=== PATIENT | female | born 1935 | race Caucasian/White ===

== ENCOUNTER → 2016-04-17 | Outpatient (CLI) | payer OTHER ==
[~2016-04-17] MED LIST: IOPAMIDOL (ISOVUE 370) 100 ML BTL IV ONE
--- NOTE | 2016-04-17 16:41 | DX ---
Fluoroscopy provided for port check 1331 hours Indication: Blood cannot be aspirated from port. Fluoroscopy time: 1.1 minute. Dose: 36.4 mGy Technique: Several still images and real time fluoroscopy. 10 mL of sterile Isovue-370 was hand injec attila via the port. The port catheter was accessed by the radiology nurse. Findings: The left anterior chest wall port is well seated. No fracture or discontinuity of the port catheter. No extravasation from the port or catheter tubing at any point throughout the exam. A sheat h at the tip of the port catheter is evidenced by refluxing of contrast posteriorly along the side fl rickey of the tip and then disbursing off the side of the catheter. Tiny amount of contrast intermitten tly flows freely from the tip of the catheter. Impression: 1. Fibrin sheath at tip of port catheter. 2. Intact port. No discontinuity of port or leak. Comment: The results were called to Zoë at [facility]. She plans to convey the results to Dr. Adrienne lezama.
== END ==
LOC: FIMAGING 12:47
PROVIDERS: ATTEND Internal Medicine Hematology & Oncology
DX: Z45.2 Encounter for adjustment and management of vascular access device (principal)
CPT/HCPCS: 76000; Q9967

== ENCOUNTER → 2016-07-18 | Outpatient (CLI) | payer OTHER | LOC: GIMAGING 10:10 | PROVIDERS: ATTEND Family Medicine | DX: M25.512 Pain in left shoulder (principal) | CPT/HCPCS: 73030-PO ==

== ENCOUNTER 2016-11-07 13:03 | Outpatient (CLI) | payer OTHER ==
[2016-11-07] MEDS ORDERED: ACETAMINOPHEN 325 MG TAB PO ONE (14:00)
[2016-11-07 19:01] VITALS: PULSE 72; RESP 20; TEMP 99; O2SAT 96
== END 2016-11-07 18:00 | disposition home or self-care (01) ==
LOC: FOBOP 13:03
PROVIDERS: ATTEND Internal Medicine Hematology & Oncology
PROC: 30233N1 Transfusion of Nonautologous Red Blood Cells into Peripheral Vein, Percutaneous Approach (ICD-10-PCS; principal; 2016-11-07)
DX: C90.00 Multiple myeloma not having achieved remission (principal); D63.1 Anemia in chronic kidney disease; D64.81 Anemia due to antineoplastic chemotherapy
CPT/HCPCS: 36430; 81403; J1642; P9016; 86850-90; 86870-90; 86905-90; 86922-90; 99001-90

== ENCOUNTER → 2016-12-19 | Outpatient (CLI) | payer OTHER | LOC: FOBOP 11:46 | PROVIDERS: ATTEND Internal Medicine Hematology & Oncology | PROC: 30233N1 Transfusion of Nonautologous Red Blood Cells into Peripheral Vein, Percutaneous Approach (ICD-10-PCS; principal; 2016-12-19) | DX: C90.00 Multiple myeloma not having achieved remission (principal); N18.9 Chronic kidney disease, unspecified; D63.1 Anemia in chronic kidney disease; D63.0 Anemia in neoplastic disease | CPT/HCPCS: 36430; J1642; P9016; 86870-90; 86905-90; 86922-90 ==

== ENCOUNTER 2017-01-02 10:24 | Outpatient (CLI) | payer OTHER | END 2017-01-02 14:45 | disposition home or self-care (01) | LOC: FOBOP 10:24 | PROVIDERS: ATTEND Internal Medicine Hematology & Oncology | PROC: 30233N1 Transfusion of Nonautologous Red Blood Cells into Peripheral Vein, Percutaneous Approach (ICD-10-PCS; principal; 2017-01-02) | DX: C90.00 Multiple myeloma not having achieved remission (principal); D63.0 Anemia in neoplastic disease; N18.9 Chronic kidney disease, unspecified | CPT/HCPCS: 36430; J1642; P9016; 86870-90; 86905-90; 86922-90; 99001-90 ==

== ENCOUNTER 2017-01-24 09:53 | Outpatient (CLI) | payer OTHER ==
[2017-01-24 10:21] VITALS: BP 95/55; PULSE 82; RESP 16; TEMP 99.2; O2SAT 97
[2017-01-24] MEDS ORDERED: LIDOCAINE/PRILOCAINE 1 EACH CRTUBE TP ONE (11:15)
== END 2017-01-24 16:30 | disposition home or self-care (01) ==
LOC: FOBOP 09:53
PROVIDERS: ATTEND Internal Medicine Hematology & Oncology
PROC: 30233N1 Transfusion of Nonautologous Red Blood Cells into Peripheral Vein, Percutaneous Approach (ICD-10-PCS; principal; 2017-01-24)
DX: C90.00 Multiple myeloma not having achieved remission (principal); D63.0 Anemia in neoplastic disease; N18.9 Chronic kidney disease, unspecified; E83.111 Hemochromatosis due to repeated red blood cell transfusions; D63.1 Anemia in chronic kidney disease; K58.9 Irritable bowel syndrome, unspecified; E03.9 Hypothyroidism, unspecified; M87.88 Other osteonecrosis, other site; D69.6 Thrombocytopenia, unspecified; R53.83 Other fatigue
CPT/HCPCS: 36430; J1642; P9016; 86870-90; 86905-90; 86922-90

== ENCOUNTER 2017-02-13 11:59 | Outpatient (CLI) | payer OTHER ==
[2017-02-13] MEDS ORDERED: ACETAMINOPHEN 325 MG TAB PO ONE (12:30)
[2017-02-13] MEDS ORDERED: diphenhydrAMINE 25 MG CAP PO ONE (12:30)
[2017-02-13 12:47] VITALS: RESP 16; O2SAT 92
[2017-02-13 13:42] VITALS: BP 116/59; PULSE 76; TEMP 98.2
== END 2017-02-13 16:30 | disposition home or self-care (01) ==
LOC: FOBOP 11:59
PROVIDERS: ATTEND Internal Medicine Hematology & Oncology
PROC: 30233N1 Transfusion of Nonautologous Red Blood Cells into Peripheral Vein, Percutaneous Approach (ICD-10-PCS; principal; 2017-02-13)
DX: C90.00 Multiple myeloma not having achieved remission (principal)
CPT/HCPCS: 36430; J1642; P9016; 86850-90; 86870-90; 86905-90; 86922-90; 99001-90

== ENCOUNTER → 2017-03-13 | Outpatient (CLI) | payer OTHER ==
[~2017-03-13] MED LIST changes: +ACETAMINOPHEN 325 MG TAB PO ONE; -IOPAMIDOL (ISOVUE 370) 100 ML BTL IV ONE; +diphenhydrAMINE 25 MG CAP PO ONE
== END ==
LOC: FOBOP 13:19
PROVIDERS: ATTEND Internal Medicine Hematology & Oncology
PROC: 30233N1 Transfusion of Nonautologous Red Blood Cells into Peripheral Vein, Percutaneous Approach (ICD-10-PCS; principal; 2017-03-13)
DX: C90.00 Multiple myeloma not having achieved remission (principal)
CPT/HCPCS: 36430; J1642; P9016; 86850-90; 86870-90; 86905-90; 86922-90

== ENCOUNTER 2017-04-10 11:16 | Outpatient (CLI) | payer OTHER | END 2017-04-10 15:15 | disposition home or self-care (01) | LOC: FOBOP 11:16 | PROVIDERS: ATTEND Internal Medicine Hematology & Oncology | PROC: 30233N1 Transfusion of Nonautologous Red Blood Cells into Peripheral Vein, Percutaneous Approach (ICD-10-PCS; principal; 2017-04-10) | DX: C90.00 Multiple myeloma not having achieved remission (principal); D63.0 Anemia in neoplastic disease; D70.9 Neutropenia, unspecified; E83.119 Hemochromatosis, unspecified; E03.9 Hypothyroidism, unspecified; N18.9 Chronic kidney disease, unspecified; M87.88 Other osteonecrosis, other site; D69.6 Thrombocytopenia, unspecified | CPT/HCPCS: 36430; J1642; P9016; P9040; 86850-90; 86870-90; 86905-90; 86922-90 ==

== ENCOUNTER → 2017-04-23 | Outpatient (CLI) | payer OTHER | LOC: FIMAGING 16:20 | PROVIDERS: ATTEND Internal Medicine Hematology & Oncology | DX: M19.012 Primary osteoarthritis, left shoulder (principal); D69.6 Thrombocytopenia, unspecified | CPT/HCPCS: 82607-90; 82784-90; 86334-90 ==

== ENCOUNTER 2017-04-24 10:43 | Outpatient (CLI) | payer OTHER ==
[2017-04-24] MEDS ORDERED: ACETAMINOPHEN 325 MG TAB PO ONE (11:15)
== END 2017-04-24 20:09 | disposition home or self-care (01) ==
LOC: FOBOP 10:43
PROVIDERS: ATTEND Internal Medicine Hematology & Oncology
PROC: 30233N1 Transfusion of Nonautologous Red Blood Cells into Peripheral Vein, Percutaneous Approach (ICD-10-PCS; principal; 2017-04-24)
DX: D46.9 Myelodysplastic syndrome, unspecified (principal); J18.1 Lobar pneumonia, unspecified organism; C90.00 Multiple myeloma not having achieved remission; D63.0 Anemia in neoplastic disease; D63.1 Anemia in chronic kidney disease; E83.119 Hemochromatosis, unspecified; N18.9 Chronic kidney disease, unspecified; D70.9 Neutropenia, unspecified; K58.9 Irritable bowel syndrome, unspecified; E03.9 Hypothyroidism, unspecified; M87.88 Other osteonecrosis, other site; D69.6 Thrombocytopenia, unspecified; R41.3 Other amnesia
CPT/HCPCS: 36430; J1642; P9016; 86850-90; 86870-90; 86905-90; 86922-90; 99001-90

== ENCOUNTER → 2017-05-13 | Outpatient (CLI) | payer OTHER | LOC: FIMAGING 15:02 | PROVIDERS: ATTEND Internal Medicine Hematology & Oncology | DX: Z13.820 Encounter for screening for osteoporosis (principal); M81.0 Age-related osteoporosis without current pathological fracture ==

== ENCOUNTER 2017-05-30 19:48 | Inpatient (IN) | payer OTHER ==
[2017-05-30] MEDS ORDERED: NS 1,000 ML IV ONE ×2 (19:54→21:54)
--- NOTE | 2017-05-30 19:57 | EDPHY ---
H & P Time Seen by Provider: 05/30/17 19:55 HPI/ROS: HPI CHIEF COMPLAINT: Nausea/vomiting HISTORY OF PRESENT ILLNESS: Patient very pleasant 81-year-old female, she presents emergency room with nausea vomiting. Patient states that she did this evening and shortly after eating dinner she had nausea with vomiting. She vomited multiple times. She felt weak after vomiting. She had no significant pain. Specifically denies chest pain or shortness of breath. 911 was called from her private residence where she resides alone. But she has home health care. She had trouble walking due to feeling weak. EMS arrived to evaluate her and brought her to the emergency room. She did receive IV Zofran around this feeling much better. She denies any chest pain or shortness of breath. Denies abdominal pain. States her nausea is since resolved. Past Medical History: Hypertension, dementia, anxiety, thrombocytopenia, anemia , failure to thrive, multiple myeloma Past Surgical History: No recent surgery Social History: Denies drugs alcohol tobacco. Resides in independent private residence. Family History: Noncontributory ROS REVIEW OF SYSTEMS: A comprehensive 10 point review of systems is otherwise negative aside from elements mentioned in the history of present illness. Exam Constitutional elderly, otherwise nontoxic, triage nursing summary reviewed, vital signs reviewed, awake/alert. Eyes normal conjunctivae and sclera, EOMI, PERRLA. HENT normal inspection, atraumatic, moist mucus membranes, no epistaxis, neck supple/ no meningismus, no raccoon eyes. Respiratory clear to auscultation bilaterally, normal breath sounds, no respiratory distress, no wheezing. Cardiovascular rate normal, regular rhythm, no murmur, no edema, distal pulses normal. Gastrointestinal soft, non-tender, no rebound, no guarding, normal bowel sounds, no distension, no pulsatile mass. Genitourinary no CVA tenderness. Musculoskeletal no midline vertebral tenderness, full range of motion, no calf swelling, no tenderness of extremities, no meningismus, good pulses, neurovascularly intact. Skin pink, warm, & dry, no rash, skin atraumatic. Neurologic awake, alert and oriented x 3, AAOx3, moves all 4 extremities equally, motor intact, sensory intact, CN II-XII intact, normal cerebellar, normal vision, normal speech. Psychiatric normal mood/affect. Heme/Lymph/Immune no lymphadenopathy. Differential Diagnosis: Includes but is not limited to in a particular order acute nausea vomiting, dehydration, electrolyte disturbance, infection, gastritis, bowel obstruction Medical Decision Making: Plan for this patient IV establishment IV fluid bolus , she is feeling better after IV Zofran given by EMS, EKG, troponin, basic blood work electrolytes, urinalysis re-evaluate. Re-evaluation: EKG interpretation by me on record in [employer] system. Impression time of EKG 1999: Sinus rhythm rate of [address] ST depression no significant T-wave abnormalities. 2151: Patient re-evaluated this time she is resting comfortably. She is not actively vomiting. Vital signs are stable. Her abdomen remained soft. After further discussion with her and her daughter in-law bedside they would like to be admitted for generalized weakness, and nausea vomiting and dehydration. I think this is appropriate given her age and labs. 2155: Spoke with Dr. Gutiérrez who agrees to admit. CT scan abdomen pelvis without IV contrast shows no evidence of bowel obstruction. Please see full dictation details for report of CT scan findings. Source: Patient, EMS Exam Limitations: Clinical condition - Personal History Tetanus Vaccine Date: less than 10 years - Medical/Surgical History Hx Asthma: No Hx Chronic Respiratory Disease: No Hx Diabetes: No Hx Cardiac Disease: No Hx Renal Disease: Yes Hx Cirrhosis: No Hx Alcoholism: No Hx HIV/AIDS: No Hx Splenectomy or Spleen Trauma: No Other PMH: mulitple myeloma, low platelets, vertigo, osteoporosis, hypothyroid, chronic kidney disease. ortho (L4-L5 fusion), fall, L pelvic fx 01/29 , concussion 01/29, cataracts, neoplastic anemia - Social History Smoking Status: Former smoker Constitutional: Initial Vital Signs Temperature (C) 36.6 C 05/30/17 19:45 Heart Rate 88 05/30/17 19:45 Respiratory Rate 16 05/30/17 19:45 Blood Pressure 114/60 05/30/17 19:45 O2 Sat (%) 97 05/30/17 19:45 O2 Delivery Mode Room Air Allergies/Adverse Reactions: Cephalosporins Allergy (Unknown, Verified 01/15/16 10:56) Unknown Penicillins Allergy (Unknown, Verified 01/15/16 10:56) Rash Sulfa (Sulfonamide Antibiotics) Allergy (Unknown, Verified 01/15/16 10:56) throat swelling fenofibrate nanocrystallized [From Tricor] Allergy (Verified 01/15/16 10:56) Unknown fenofibrate,micronized [From Tricor] Allergy (Verified 01/15/16 10:56) Unknown lovastatin [From Mevacor] Allergy (Verified 01/15/16 10:56) Unknown Home Medications: Medication Instructions Recorded Acetaminophen [Tylenol 325mg (*)] 325 mg PO Q6 PRN 05/31/17 Ascorbic Acid [Vitamin C 500 mg 500 mg PO DAILY 05/31/17 (*)] Aspirin EC [Aspirin EC 81 mg (*)] 81 mg PO DAILY 05/31/17 C/E/Zn/Cu/OM3/DHA/EPA/LUT/ZEAX 2 each PO DAILY 05/31/17 [Preservision Areds 2 Softgel] Deferasirox [Jadenu] 180 mg PO BID 05/31/17 Dexamethasone [DEXAMETHASONE] 1 mg PO DAILY 05/31/17 Herbals/Supplements -Info Only 1 ea PO DAILY 05/31/17 Levothyroxine [Synthroid 137 mcg 137 mcg PO DAILY06 05/31/17 (*)] Loratadine [Claritin 10 mg] 10 mg PO DAILY PRN 05/31/17 Pomalidomide [Pomalyst] 1 mg PO DAILY 05/31/17 traMADol [Ultram 50 mg (*)] 50 mg PO DAILY PRN 05/31/17 valACYclovir [Valtrex (*)] 500 mg PO DAILY 05/31/17 Medical Decision Making - Data Points Laboratory Results: Laboratory Results 05/31/17 13:43 05/31/17 06:35 05/31/17 05/31/17 05/31/17 13:43 08:02 05:55 WBC 1.76 10^3/uL L 10^3/uL (3.80-9.50) RBC 1.97 10^6/uL L 10^6/uL (4.18-5.33) Hgb 6.6 g/dL L g/dL (12.6-16.3) Hct 20.8 % L % (38.0-47.0) MCV 105.6 fL H fL (81.5-99.8) MCH 33.5 pg pg (27.9-34.1) MCHC 31.7 g/dL L g/dL (32.4-36.7) RDW 28.4 % H % (11.5-15.2) Plt Count 40 10^3/uL L 10^3/uL (150-400) Platelet Estimate DECREASED L (ADEQ) Smear Review By Jina GIRON MD Patient ABO/Rh A POSITIVE Rh Phenotype Pending Antibody Screen TNP Antibody Screen Refer POSITIVE Antibody ID Referred Pending Red Cell Ag Pheno DNA Pending AMY, IgG Interpret Pending AMY, Poly Interpret Pending AMY, Complement Interp Pending Crossmatch See Detail Crossmatch IS Only See Detail 05/30/17 20:00 WBC RBC Hgb Hct MCV MCH MCHC RDW Plt Count Platelet Estimate Smear Review By Jina GIRON MD Patient ABO/Rh Rh Phenotype Antibody Screen Antibody Screen Refer Antibody ID Referred Red Cell Ag Pheno DNA AMY, IgG Interpret AMY, Poly Interpret AMY, Complement Interp Crossmatch Crossmatch IS Only Microbiology Results: MICROBIOLOGY 05/31/17 10:04 Nasal, Sinus - Swab Respiratory Panel (PCR) - Final No Organism Detected Medications Given: Ascorbic Acid (Vitamin C) 500 mg PO DAILY NELSON Stop: 11/27/17 14:44 Last Admin: 05/31/17 15:29 Dose: 500 mg Aspirin Buffered (Aspirin Ec) 81 mg PO DAILY NELSON Stop: 11/27/17 14:44 Last Admin: 05/31/17 15:29 Dose: 81 mg Cetirizine HCl (Zyrtec) 10 mg PO DAILY PRN PRN Reason: ALLERGIES Stop: 11/27/17 14:47 Last Admin: 05/31/17 15:29 Dose: 10 mg Dexamethasone (Dexamethasone) 1 mg PO DAILY NELSON Stop: 11/27/17 14:59 Last Admin: 05/31/17 15:30 Dose: 1 mg Dextrose/Sodium Chloride (D5w 1/2 Ns) 1,000 mls @ 100 mls/hr IV CONT NELSON Stop: 11/26/17 22:44 Last Admin: 05/31/17 01:09 Dose: 1,000 mls Levothyroxine Sodium (Synthroid) 137 mcg PO DAILY06 NELSON Stop: 11/27/17 14:44 Last Admin: 05/31/17 15:28 Dose: 137 mcg Miscellaneous Medication (Deferasirox [Jadenu]) 180 mg PO BID NELSON Stop: 11/27/17 14:44 Last Admin: 05/31/17 21:33 Dose: Not Given Miscellaneous Medication (Pomalidomide [Pomalyst]) 1 mg PO DAILY NELSON Stop: 11/27/17 14:44 Last Admin: 05/31/17 15:31 Dose: Not Given Multivitamins/Minerals (Preservision Areds2 Formula) 2 each PO DAILY NELSON Stop: 11/27/17 14:44 Last Admin: 05/31/17 15:28 Dose: 2 each Valacyclovir HCl (Valtrex) 500 mg PO DAILY NELSON Stop: 06/30/17 14:44 Last Admin: 05/31/17 15:32 Dose: Not Given Discontinued Medications Dexamethasone (Decadron) 1 mg PO DAILY NELSON Stop: 11/27/17 14:44 Last Admin: 05/31/17 15:32 Dose: Not Given Sodium Chloride (Ns) 1,000 mls @ 0 mls/hr IV EDNOW ONE; Wide Open PRN Reason: Protocol Stop: 05/30/17 19:55 Last Admin: 05/30/17 20:00 Dose: 1,000 mls Sodium Chloride (Ns) 1,000 mls @ 0 mls/hr IV ONCE ONE PRN Reason: Wide Open Stop: 05/30/17 21:55 Last Admin: 05/30/17 22:52 Dose: 1,000 mls Departure - Departure Disposition: [facility] Inpatient Acute Clinical Impression: Dehydration, Generalized weakness, Thrombocytopenia Nausea and vomiting Qualifiers: Vomiting type: unspecified Vomiting Intractability: intractable Qualified Code( s): R11.2 - Nausea with vomiting, unspecified Anemia Qualifiers: Anemia type: unspecified type Qualified Code(s): D64.9 - Anemia, unspecified Condition: Fair
--- NOTE | 2017-05-30 20:02 | CPEKG ---
Heart Rate: 87 RR Interval: 690 QRSD Interval: 80 QT Interval: 360 QTC Interval: 433 QRS [place]: 51 T Wave [place]: 51 EKG Severity - ABNORMAL ECG - EKG Impression: ATRIAL FIBRILLATION Electronically Signed By: Albert Rodríguez 30-May-2017 23:13:41
[2017-05-30 20:16] LABS: PLATELET COUNT 62 10^3/uL (150-400)
[2017-05-30 20:20] LABS: INR 0.98 (0.83-1.16); PROTIME(PATIENT) 13.2 SEC (12.0-15.0)
[2017-05-30] MEDS ORDERED: ACETAMINOPHEN 325 MG TAB PO PRN (22:32)
[2017-05-30] MEDS ORDERED: ONDANSETRON DISINTEGRATING 4 MG TAB PO PRN (22:32)
[2017-05-30] MEDS ORDERED: PROMETHAZINE HCL 25 MG/ML INJ IVP PRN (22:32)
[2017-05-30] MEDS ORDERED: ONDANSETRON 4 MG/2 ML VIAL IVP PRN (22:32)
[2017-05-31] MEDS: D5W 1/2 NS 1,000 ML IV SCH (01:09)
--- NOTE | 2017-05-31 01:37 | PDGENHP ---
History and Physical - Chief Complaint Fatigue - History of Present Illness 81 yo F w/ MM and related pancytopenia presents with fatigue. Patient lives alone. Today she displayed fatigue, nausea, and vomiting so patient's daughter in law insisted she come to the ED for evaluation. Patient's family did not feel comfortable with patient returning home by herself so the decision was made to admit the patient for observation. Patient herself is frustrated with this decision and would prefer to be home but no longer has a ride. She describes a few days of congestion and mild, generalized fatigues but denies other symptoms to me at this time. Work-up in the ED relatively unremarkable revealing know pancytopenia and no acute findings on CT A/P. History Information - Allergies/Home Medication List Allergies/Adverse Reactions: Cephalosporins Allergy (Unknown, Verified 01/15/16 10:56) Unknown Penicillins Allergy (Unknown, Verified 01/15/16 10:56) Rash Sulfa (Sulfonamide Antibiotics) Allergy (Unknown, Verified 01/15/16 10:56) throat swelling fenofibrate nanocrystallized [From Tricor] Allergy (Verified 01/15/16 10:56) Unknown fenofibrate,micronized [From Tricor] Allergy (Verified 01/15/16 10:56) Unknown lovastatin [From Mevacor] Allergy (Verified 01/15/16 10:56) Unknown Home Medications: Unobtainable 05/30/17 [Last Taken Unknown] I have personally reviewed and updated: family history, medical history - Past Medical History Additional medical history: Multiple Myeloma. Pancytopenia - Surgical History Additional surgical history: Kyphoplasties - Family History Additional family history: Asked, denies - Social History Smoking Status: Former smoker Review of Systems Review of Systems: ROS: 10pt was reviewed & negative except for what was stated in HPI & below Physical Exam Physical Exam: Temp Pulse Resp BP Pulse Ox 36.6 C 90 20 96/53 L 95 05/30/17 19:45 05/31/17 01:05 05/31/17 01:05 05/31/17 01:05 05/31/17 01:05 Constitutional: no apparent distress, not in pain Eyes: PERRL, EOMI Ears, Nose, Mouth, Throat: moist mucous membranes, no oral mucosal ulcers Cardiovascular: regular rate and rhythym, systolic murmur Respiratory: no respiratory distress, clear to auscultation Gastrointestinal: normoactive bowel sounds, soft, non-tender abdomen Skin: warm, normal color Musculoskeletal: full muscle strength, no muscle tenderness Neurologic: CN II-XII Intact, other (A&Ox2) Psychiatric: interacting appropriately, not anxious Lab Data & Imaging Review 05/30/17 20:00 05/30/17 20:00 WBC 2.41 10^3/uL (3.80-9.50) L 05/30/17 20:00 RBC 2.61 10^6/uL (4.18-5.33) L 05/30/17 20:00 Hgb 8.6 g/dL (12.6-16.3) L 05/30/17 20:00 Hct 26.7 % (38.0-47.0) L 05/30/17 20:00 MCV 102.3 fL (81.5-99.8) H 05/30/17 20:00 MCH 33.0 pg (27.9-34.1) 05/30/17 20:00 MCHC 32.2 g/dL (32.4-36.7) L 05/30/17 20:00 RDW 28.3 % (11.5-15.2) H 05/30/17 20:00 Plt Count 62 10^3/uL (150-400) L 05/30/17 20:00 MPV 9.6 fL (8.7-11.7) 05/30/17 20:00 Neut % (Auto) Not Reported 05/30/17 20:00 Lymph % (Auto) Not Reported 05/30/17 20:00 [place] % (Auto) Not Reported 05/30/17 20:00 Eos % (Auto) Not Reported 05/30/17 20:00 Baso % (Auto) Not Reported 05/30/17 20:00 Nucleat RBC Rel Count 5.4 % (0.0-0.2) H 05/30/17 20:00 Absolute Neuts (auto) Not Reported 05/30/17 20:00 Absolute Lymphs (auto) Not Reported 05/30/17 20:00 Absolute Monos (auto) Not Reported 05/30/17 20:00 Absolute Eos (auto) Not Reported 05/30/17 20:00 Absolute Basos (auto) Not Reported 05/30/17 20:00 Absolute Nucleated RBC 0.13 10^3/uL (0-0.01) H 05/30/17 20:00 Immature Gran % Not Reported 05/30/17 20:00 Seg Neutrophils % 19 % 05/30/17 20:00 Band Neutrophils % 29 % 05/30/17 20:00 Lymphocytes % 35 % 05/30/17 20:00 Monocytes % 6 % 05/30/17 20:00 Eosinophils % 9 % 05/30/17 20:00 Basophils % 1 % 05/30/17 20:00 Metamyelocytes % 1 % 05/30/17 20:00 Immature Gran # Not Reported 05/30/17 20:00 Absolute Seg Neuts 0.46 10^/uL (1.70-6.50) L 05/30/17 20:00 Absolute Band Neuts 0.70 10^3/uL (0.00-0.70) 05/30/17 20:00 Absolute Lymphocytes 0.84 10^3/uL (1.00-3.00) L 05/30/17 20:00 Absolute Monocytes 0.14 10^3/uL (0.30-0.80) L 05/30/17 20:00 Absolute Eosinophils 0.22 10^3/uL (0.03-0.40) 05/30/17 20:00 Absolute Basophils 0.02 10^3/uL (0.02-0.10) 05/30/17 20:00 Absolute Metamyelocyte 0.02 10^3/mL (0.00-0.00) H 05/30/17 20:00 Nucleated RBCs 2 /100 WBC (0-0) H 05/30/17 20:00 Platelet Estimate DECREASED (ADEQ) L 05/30/17 20:00 Polychromasia 1+ H 05/30/17 20:00 Hypochromasia 1+ H 05/30/17 20:00 Oval Macrocytes 1+ H 05/30/17 20:00 PT 13.2 SEC (12.0-15.0) 05/30/17 20:00 INR 0.98 (0.83-1.16) 05/30/17 20:00 APTT 23.9 SEC (23.0-38.0) 05/30/17 20:00 VBG Lactic Acid 1.6 mmol/L (0.7-2.1) 05/30/17 20:15 Sodium 143 mEq/L (135-145) 05/30/17 20:00 Potassium 5.3 mEq/L (3.5-5.2) H 05/30/17 20:00 Chloride 105 mEq/L (97-110) 05/30/17 20:00 Carbon Dioxide 19 mEq/l (22-31) L 05/30/17 20:00 Anion Gap 19 mEq/L (8-16) H 05/30/17 20:00 BUN 33 mg/dL (7-23) H 05/30/17 20:00 Creatinine 1.3 mg/dL (0.6-1.0) H 05/30/17 20:00 Estimated GFR 39 05/30/17 20:00 Glucose 175 mg/dL (70-100) H 05/30/17 20:00 Calcium 9.4 mg/dL (8.5-10.4) 05/30/17 20:00 Total Bilirubin 0.4 mg/dL (0.1-1.4) 05/30/17 20:00 Conjugated Bilirubin 0.4 mg/dL (0.0-0.5) 05/30/17 20:00 Unconjugated Bilirubin 0.0 mg/dL (0.0-1.1) 05/30/17 20:00 AST 53 IU/L (14-46) H 05/30/17 20:00 ALT 88 IU/L (9-52) H 05/30/17 20:00 Alkaline Phosphatase 105 IU/L (38-126) 05/30/17 20:00 Troponin I < 0.012 ng/mL (0.000-0.034) 05/30/17 20:00 Total Protein 7.7 g/dL (6.3-8.2) 05/30/17 20:00 Albumin 4.1 g/dL (3.5-5.0) 05/30/17 20:00 Lipase 229 IU/L (23-300) 05/30/17 20:00 Imaging Review: Imaging Impressions Abdomen X-Ray 05/30/17 19:55 Impression: 1. Nonspecific bowel gas pattern with minimal air-fluid levels right lower quadrant. Abdomen/Pelvis CT 05/30/17 21:58 Impression: 1. No evidence of significant small bowel distention. 2. Small infrarenal abdominal aortic aneurysm with extensive vascular calcification. 3. Left sacral insufficiency fracture. Prior kyphoplasty at multiple levels at the thoracolumbar junction. Assessment & Plan Assessment: 81 yo F w/ MM and related pancytopenia presents with likely viral illness. Plan: 1. Fatigue- Suspected viral illness on the basis of 2 day history of congestion and generalized fatigue. Vital signs stable and laboratory work-up generally at baseline. Patient lives alone and unsafe to return home at this time. - Admit for observation - Respiratory PCR - PT/OT evaluations 2. Multiple myeloma - With known pancytopenia and CKD. Laboratory values generally at baseline. 3. Pancytopenia - Chronic problem, likely related to MM. - Will check ferritin and B12 noting deficiency in both in the past Diet - Regular Code - Full Ppx - SCDs noting thrombocytopenia Dispo - Admit under observation status
[2017-05-31 06:26] LABS: PLATELET COUNT 38 10^3/uL (150-400)
[2017-05-31] MEDS ORDERED: ENOXAPARIN 40 MG/0.4 ML SYR SC SCH (09:00)
[2017-05-31 14:02] LABS: PLATELET COUNT 40 10^3/uL (150-400)
[2017-05-31] MEDS ORDERED: traMADol 50 MG TAB PO PRN (14:36)
[2017-05-31] MEDS ORDERED: NON-FORMULARY NEW DRUG (Loratadine [Claritin 10 Mg] 10 MG) PO PRN (14:36)
[2017-05-31] MEDS ORDERED: DEXAMETHASONE 0.5 MG TAB PO SCH (14:45)
--- NOTE | 2017-05-31 14:45 | ASMTCMCOM ---
CM Note CM Note Notes: Pt has been admitted with n/v. She has a hx of multiple myeloma, FTT, anemia, HTN, anxiety. She lives alone with caregivers from [facility] who are there M-F 4 hours in the mornnig and afternoon and less on weekends. Spoke with her daughter in law Rosalba [phone] (pt's son is Ronald) who stated pt has significant memory issues but has not been formerly diagnosed with dementia. They will increase her private duty care when pt discharges home - not sure if this will be a permanent change but more will be determined during pt's stay here. Staff is concerned regarding pt's ability to be alone at home. Pt has had transfusion today 2/2 low hemoglobin. CM will follow for any d/c needs. Date Signed: 05/31/2017 02:45 PM Electronically Signed By:GWYN Albert
[2017-05-31] MEDS ORDERED: CETIRIZINE 10 MG TAB PO PRN (14:48)
[2017-05-31] MEDS: LEVOTHYROXINE 137 MCG TAB PO SCH (15:28)
[2017-05-31] MEDS: PRESERVISION AREDS2 FORMULA EYE VIT 1 EACH PO SCH (15:28)
[2017-05-31] MEDS: ASPIRIN EC 81 MG TAB PO SCH (15:29)
[2017-05-31] MEDS: ASCORBIC ACID 500 MG TAB PO SCH (15:29)
[2017-05-31] MEDS: DEXAMETHASONE 2 MG TAB PO SCH (15:30)
[2017-05-31] MEDS: DEFERASIROX 180 MG PO SCH ×2 (15:30→21:33)
[2017-05-31] MEDS: POMALIDOMIDE 1 MG PO SCH (15:31)
[2017-05-31] MEDS: valACYclovir 500 MG TAB PO SCH (15:32)
--- NOTE | 2017-05-31 15:49 | HOSPPROG ---
Hospitalist Progress Note Assessment/Plan: 81 yo F admitted w weakness, nausea nd vomiting and anemia. anemia: 2/2 longstanding MM no signs active bleeding TRANSFUSE 2 UNITS vomiting: appears to have resolved hungry weakness: suspect driven by very low hct transfuse PT and OT evals MM: continue meds proph: scd's dispo: change to inpt was delay in getting blood given complexity of crossmatch Subjective: hungry. no melena. case d/w dr echevarria Objective: Vital Signs Temp Pulse Resp BP Pulse Ox 36.9 C 78 16 108/57 L 96 05/31/17 15:05 05/31/17 15:05 05/31/17 15:05 05/31/17 15:05 05/31/17 15:05 Microbiology 05/31/17 10:04 Respiratory Panel (PCR) - Final Nasal, Sinus - Swab No Organism Detected Laboratory Results 05/31/17 13:43 05/31/17 06:35 05/30/17 05/31/17 06/01/17 05:59 05:59 05:59 Intake Total 720 Output Total 550 Balance 170 PT 13.2 SEC (12.0-15.0) 05/30/17 20:00 INR 0.98 (0.83-1.16) 05/30/17 20:00 - Physical Exam Constitutional: no apparent distress, appears nourished Eyes: PERRL, anicteric sclera Ears, Nose, Mouth, Throat: moist mucous membranes, hearing normal Cardiovascular: regular rate and rhythym, no murmur, rub, or gallop Respiratory: no respiratory distress, no rales or rhonchi Gastrointestinal: normoactive bowel sounds, soft, non-tender abdomen Genitourinary: no bladder fullness, No waters in urethra Skin: warm, normal color Musculoskeletal: full muscle strength Neurologic: AAOx3, sensation intact bilaterally Psychiatric: interacting appropriately Lymph, Heme, Immunologic: no cervical LAD ICD10 Worksheet Patient Problems: Problems Problem Status Onset Anemia Acute Dehydration Acute Nausea and vomiting Acute Thrombocytopenia Acute Weakness Acute Acute exacerbation of chronic bronchitis Acute Anemia in neoplastic disease Acute Chemotherapy induced thrombocytopenia Acute Closed stable fracture of multiple pubic rami Acute Failure to thrive in adult Acute Fall at home Acute Fracture of left superior pubic ramus Acute Hand pain Acute Gait instability Chronic Multiple myeloma Chronic
--- NOTE | 2017-05-31 16:09 | PDMN ---
Medical Necessity Medical necessity: C/M review: est. > 2 MN LOS for eval and TX of acute and persistent anemia, vomiting- appears to have resolved, weakness - suspect driven by very low Hct requiring 2 units PRBCs (delay in getting blood given complexity of crossmatch), ongoing IV fluids, comorbid longstanding multiple myeloma per 05/31/2017 Hospitalist progress note.
[2017-06-01 03:14] VITALS: RESP 16
[2017-06-01] MEDS: D5W 1/2 NS 1,000 ML IV SCH (03:51)
[2017-06-01] MEDS: LEVOTHYROXINE 137 MCG TAB PO SCH (06:14)
[2017-06-01 07:34] VITALS: BP 102/72; PULSE 70; TEMP 97.5; O2SAT 96
[2017-06-01] MEDS: POMALIDOMIDE 1 MG PO SCH (08:02)
[2017-06-01] MEDS: DEFERASIROX 180 MG PO SCH (08:02)
[2017-06-01] MEDS: valACYclovir 500 MG TAB PO SCH (08:03)
--- NOTE | 2017-06-01 08:35 | HOSPPROG ---
Hospitalist Progress Note Assessment/Plan: 81 yo F admitted w weakness, nausea nd vomiting and anemia. anemia: 2/2 longstanding MM no signs active bleeding TRANSFUSE 2 UNITS vomiting: appears to have resolved hungry weakness: suspect driven by very low hct transfuse PT and OT evals MM: continue meds proph: scd's dispo: home today provided adequate hct bump > 30 minutes Subjective: transfused 2 units. feels well. anxious for dc Objective: Vital Signs Temp Pulse Resp BP Pulse Ox 36.4 C 70 16 102/72 96 06/01/17 07:33 06/01/17 07:33 06/01/17 07:33 06/01/17 07:33 06/01/17 07:33 05/31/17 06/01/17 06/02/17 05:59 05:59 05:59 Intake Total 2345 Balance 2345 PT 13.2 SEC (12.0-15.0) 05/30/17 20:00 INR 0.98 (0.83-1.16) 05/30/17 20:00 - Physical Exam Constitutional: no apparent distress, appears nourished Eyes: PERRL, anicteric sclera Ears, Nose, Mouth, Throat: moist mucous membranes, hearing normal Cardiovascular: regular rate and rhythym, no murmur, rub, or gallop Respiratory: no respiratory distress, no rales or rhonchi Gastrointestinal: normoactive bowel sounds, soft, non-tender abdomen Genitourinary: no bladder fullness, No waters in urethra Skin: warm, normal color Musculoskeletal: full muscle strength Neurologic: AAOx3 ICD10 Worksheet Patient Problems: Problems Problem Status Onset Anemia Acute Dehydration Acute Nausea and vomiting Acute Thrombocytopenia Acute Weakness Acute Acute exacerbation of chronic bronchitis Acute Anemia in neoplastic disease Acute Chemotherapy induced thrombocytopenia Acute Closed stable fracture of multiple pubic rami Acute Failure to thrive in adult Acute Fall at home Acute Fracture of left superior pubic ramus Acute Hand pain Acute Gait instability Chronic Multiple myeloma Chronic
--- NOTE | 2017-06-01 08:52 | GDS ---
[f rep st] DISCHARGE SUMMARY DISCHARGE DIAGNOSES: 1. Nausea, vomiting, now resolved. 2. Multiple myeloma. 3. Pancytopenia, status post 2 units of packed red cells. HOSPITAL COURSE: Please see admission history and physical by Demetrius Beck MD. The patient presented with nausea and vomiting on the evening of the . She was noted to have a hemoglobin t hat fell to 5.7 with IV fluids. She was ordered 2 units of blood, which took a bit of time given the complexity of crossmatch. The patient had no evidence of GI bleeding. She felt well, was anxious f or discharge. She had no further vomiting, was tolerating a regular diet. DISCHARGE MEDICATIONS: Unchanged. /[id number]/MODL
--- NOTE | 2017-06-01 08:54 | ASMTLACE ---
LACE Acuity / Level of Answers: Yes Care: Did the patient have an inpatient admission? Comorbidities - select Answers: Any tumor (including all that apply lymphoma or leukemia) Mild liver or renal disease Other Notes: hx multiple myeloma, HTN, anxiety, ane jeremiah, memory loss # of Emergency department Answers: 1-2 visits in the last 6 months Score: 9 Date Signed: 06/01/2017 08:54 AM Electronically Signed By:Isabel Handley RN
[2017-06-01] MEDS ORDERED: Herbals/Supplements -Info Only PO SCH (09:00)
[2017-06-01] MEDS: ASCORBIC ACID 500 MG TAB PO SCH (09:08)
[2017-06-01] MEDS: ASPIRIN EC 81 MG TAB PO SCH (09:08)
[2017-06-01] MEDS: DEXAMETHASONE 2 MG TAB PO SCH (09:08)
[2017-06-01] MEDS: PRESERVISION AREDS2 FORMULA EYE VIT 1 EACH PO SCH (09:08)
--- NOTE | 2017-06-01 11:47 | ASMTCMCOM ---
CM Note CM Note Notes: Patient medically cleared for discharge. Met with her [id number] who is taking her home. She reports they have increased the hours of care at home so the patient will not be alone. No therapies ordered. Home with caregivers. CM availble should other needs arise. Date Signed: 06/01/2017 11:47 AM Electronically Signed By:Isabel Handley RN
== END 2017-06-01 11:48 | disposition home or self-care (01) | DRG 841 ==
LOC: EDUNIT# → F1N 05-31 10:13 → OBSVTOIN 05-31 15:50 → F1N 05-31 19:28
PROVIDERS: ADMIT Student in an Organized Health Care Education/Training Program; ATTEND Internal Medicine
PROC: 30233N1 Transfusion of Nonautologous Red Blood Cells into Peripheral Vein, Percutaneous Approach (ICD-10-PCS; principal; 2017-05-31)
DX: C90.00 Multiple myeloma not having achieved remission (principal); D61.818 Other pancytopenia; I10 Essential (primary) hypertension; F03.90 Unspecified dementia, unspecified severity, without behavioral disturbance, psychotic disturbance, mood disturbance, and anxiety; F41.9 Anxiety disorder, unspecified; E03.9 Hypothyroidism, unspecified; N18.9 Chronic kidney disease, unspecified
CPT/HCPCS: 82607-90; 86850-90; 86870-90; 86905-90; 86922-90; G0378; P9016

== ENCOUNTER → 2017-07-10 | Outpatient (CLI) | payer OTHER | LOC: FOBOP 13:05 | PROVIDERS: ATTEND Internal Medicine Hematology & Oncology | PROC: 30233N1 Transfusion of Nonautologous Red Blood Cells into Peripheral Vein, Percutaneous Approach (ICD-10-PCS; principal; 2017-07-10) | DX: C90.00 Multiple myeloma not having achieved remission (principal) | CPT/HCPCS: 36430; J1642; P9016; 86850-90; 86870-90; 86905-90; 86922-90; 99001-90 ==

== ENCOUNTER → 2017-07-16 | Outpatient (CLI) | payer OTHER ==
[~2017-07-16] MED LIST changes: -ACETAMINOPHEN 325 MG TAB PO ONE; +IOPAMIDOL (ISOVUE 370) 100 ML BTL IV ONE; -diphenhydrAMINE 25 MG CAP PO ONE
== END ==
LOC: FIMAGING 12:05
PROVIDERS: ATTEND Internal Medicine Hematology & Oncology
DX: R09.02 Hypoxemia (principal); R53.83 Other fatigue; I70.0 Atherosclerosis of aorta; I25.10 Atherosclerotic heart disease of native coronary artery without angina pectoris
CPT/HCPCS: 71275; J1642; Q9967; 82784-90; 86334-90

== ENCOUNTER 2017-07-24 12:04 | Outpatient (CLI) | payer OTHER ==
[2017-07-24] MEDS ORDERED: ACETAMINOPHEN 325 MG TAB PO ONE (12:45)
[2017-07-24] MEDS ORDERED: diphenhydrAMINE 25 MG CAP PO ONE (12:45)
== END 2017-07-24 16:00 | disposition home or self-care (01) ==
LOC: FOBOP 12:04
PROVIDERS: ATTEND Internal Medicine Hematology & Oncology
PROC: 30233N1 Transfusion of Nonautologous Red Blood Cells into Peripheral Vein, Percutaneous Approach (ICD-10-PCS; principal; 2017-07-24)
DX: C90.00 Multiple myeloma not having achieved remission (principal)
CPT/HCPCS: 36430; J1642; P9016; 86850-90; 86870-90; 86905-90; 86922-90

== ENCOUNTER → 2017-07-28 | Outpatient (CLI) | payer OTHER | LOC: BMCIMAGING 18:20 | PROVIDERS: ATTEND Family Medicine | DX: M19.011 Primary osteoarthritis, right shoulder (principal); S92.355A Nondisplaced fracture of fifth metatarsal bone, left foot, initial encounter for closed fracture; M77.32 Calcaneal spur, left foot ==

== ENCOUNTER 2017-08-21 10:14 | Outpatient (CLI) | payer OTHER ==
[2017-08-21] MEDS ORDERED: diphenhydrAMINE 25 MG CAP PO ONE (10:30)
[2017-08-21] MEDS ORDERED: ACETAMINOPHEN 325 MG TAB PO ONE (10:30)
== END 2017-08-21 14:25 | disposition home or self-care (01) ==
LOC: FOBOP 10:14
PROVIDERS: ATTEND Internal Medicine Hematology & Oncology
PROC: 30233N1 Transfusion of Nonautologous Red Blood Cells into Peripheral Vein, Percutaneous Approach (ICD-10-PCS; principal; 2017-08-21)
DX: C90.00 Multiple myeloma not having achieved remission (principal)
CPT/HCPCS: 36430; P9016; 86850-90; 86870-90; 86905-90; 86922-90

== ENCOUNTER → 2017-08-25 | Outpatient (CLI) | payer OTHER | LOC: BMCIMAGING 13:54 | PROVIDERS: ATTEND Podiatrist Foot & Ankle Surgery | DX: S92.355D Nondisplaced fracture of fifth metatarsal bone, left foot, subsequent encounter for fracture with routine healing (principal) ==

== ENCOUNTER → 2017-09-19 | Outpatient (CLI) | payer OTHER ==
[~2017-09-19] MED LIST changes: +ACETAMINOPHEN 325 MG TAB ONE; +ACETAMINOPHEN 325 MG TAB PO ONE; -IOPAMIDOL (ISOVUE 370) 100 ML BTL IV ONE; +diphenhydrAMINE 25 MG CAP PO ONE
== END ==
LOC: FOBOP 12:34
PROVIDERS: ATTEND Internal Medicine Hematology & Oncology
PROC: 30233N1 Transfusion of Nonautologous Red Blood Cells into Peripheral Vein, Percutaneous Approach (ICD-10-PCS; principal; 2017-09-19)
DX: C90.00 Multiple myeloma not having achieved remission (principal); D64.81 Anemia due to antineoplastic chemotherapy; E83.111 Hemochromatosis due to repeated red blood cell transfusions; D70.9 Neutropenia, unspecified; D69.6 Thrombocytopenia, unspecified; D63.1 Anemia in chronic kidney disease; N18.9 Chronic kidney disease, unspecified; K58.9 Irritable bowel syndrome, unspecified; E03.9 Hypothyroidism, unspecified; R41.3 Other amnesia; R53.82 Chronic fatigue, unspecified
CPT/HCPCS: 36430; J1642; P9016; 86850-90; 86870-90; 86905-90; 86922-90

== ENCOUNTER → 2017-09-22 | Outpatient (CLI) | payer OTHER | LOC: BMCIMAGING 13:23 | PROVIDERS: ATTEND Podiatrist Foot & Ankle Surgery | DX: S92.355A Nondisplaced fracture of fifth metatarsal bone, left foot, initial encounter for closed fracture (principal); X58.XXXA Exposure to other specified factors, initial encounter ==

== ENCOUNTER 2017-10-16 11:20 | Outpatient (CLI) | payer OTHER ==
[2017-10-16] MEDS ORDERED: diphenhydrAMINE 25 MG CAP PO ONE ×2 (11:36→11:45)
[2017-10-16] MEDS ORDERED: ACETAMINOPHEN 325 MG TAB ONE (11:37)
[2017-10-16] MEDS ORDERED: ACETAMINOPHEN 325 MG TAB PO ONE (11:45)
== END 2017-10-16 15:00 | disposition home or self-care (01) ==
LOC: FOBOP 11:20
PROVIDERS: ATTEND Internal Medicine Hematology & Oncology
PROC: 30233N1 Transfusion of Nonautologous Red Blood Cells into Peripheral Vein, Percutaneous Approach (ICD-10-PCS; principal; 2017-10-16)
DX: C90.00 Multiple myeloma not having achieved remission (principal)
CPT/HCPCS: 36430; J1642; P9016; 86850-90; 86870-90; 86905-90; 86922-90; 99001-90

== ENCOUNTER 2017-11-01 11:14 | Outpatient (CLI) | payer OTHER ==
[2017-11-01] MEDS: ACETAMINOPHEN 325 MG TAB PO ONE (11:40)
== END 2017-11-01 18:49 | disposition home or self-care (01) ==
LOC: FOBOP 11:14
PROVIDERS: ATTEND Internal Medicine Hematology & Oncology
PROC: 30233R1 Transfusion of Nonautologous Platelets into Peripheral Vein, Percutaneous Approach (ICD-10-PCS; principal; 2017-11-01)
PROC: 30233N1 Transfusion of Nonautologous Red Blood Cells into Peripheral Vein, Percutaneous Approach (ICD-10-PCS; principal; 2017-11-01)
DX: C90.00 Multiple myeloma not having achieved remission (principal)
CPT/HCPCS: 36430; J1642; P9016; P9037; P9040; 86870-90; 86905-90; 86922-90

== ENCOUNTER 2017-11-10 19:46 | Inpatient (IN) | payer OTHER ==
[2017-11-10 21:04] LABS: PLATELET COUNT 15 10^3/uL (150-400)
[2017-11-10] MEDS ORDERED: NS 1,700 ML IV ONE (21:08)
--- NOTE | 2017-11-10 21:38 | EDPHY ---
H & P Stated Complaint: weak, increase confusion, fever, and RLQ abd pain. concern for UTI Time Seen by Provider: 11/10/17 21:03 HPI/ROS: CHIEF COMPLAINT: Increased confusion, intermittent fevers HISTORY OF PRESENT ILLNESS: The patient is an 82-year-old female with history of multiple myeloma. She received transfusion about 10 days ago. About 3 days later son noticed increased confusion. She has also had intermittent fevers up to 100 degrees. She also complained of some mild suprapubic pain. Son was worried about urinary tract infections because she has had some in the past with similar symptoms. He also states that he found her on the ground a few nights ago but was not sure if she fell. She denies headache. She denies neck pain. No vomiting or diarrhea. No chest pain or shortness of breath. No new rashes or wounds. He brought her here to make sure she did not have urine infection. He does state that she has not been drinking much water. Severity: Mild Modifying factors: None REVIEW OF SYSTEMS: Constitutional: See HPI EENTM: denies: blurred vision, double vision, nose congestion Respiratory: denies: cough, shortness of breath Cardiac: denies: chest pain, irregular heart rate, lightheadedness, palpitations Gastrointestinal/Abdominal: See HPI denies: diarrhea, nausea, vomiting, blood streaked stools Genitourinary: denies: dysuria, frequency, hematuria, pain Musculoskeletal: denies: joint pain, muscle pain Skin: denies: lesions, rash, jaundice, bruising Neurological: denies: headache, numbness, paresthesia, tingling, dizziness, weakness Hematologic/Lymphatic: denies: blood clots, easy bleeding, easy bruising Immunologic/allergic: denies: HIV/AIDS, transplant EXAM: GENERAL: Pleasant, Well-appearing, well-nourished and in no acute distress. HEAD: Atraumatic, normocephalic. EYES: Pupils equal round and reactive to light, extraocular movements intact, sclera anicteric, conjunctiva are normal. ENT: TMs normal, nares patent, oropharynx clear without exudates. Moist mucous membranes. NECK: Normal range of motion, supple without lymphadenopathy or JVD. LUNGS: Breath sounds clear to auscultation bilaterally and equal. No wheezes rales or rhonchi. HEART: Regular rate and rhythm without murmurs, rubs or gallops. ABDOMEN: Mild suprapubic pain, Soft, nontender, normoactive bowel sounds. No guarding, no rebound. No masses appreciated. BACK: No CVA tenderness, no spinal tenderness, step-offs or deformities EXTREMITIES: Normal range of motion, no pitting or edema. No clubbing or cyanosis. NEUROLOGICAL: Cranial nerves II through XII grossly intact. Normal speech, normal gait. 5/5 strength, normal movement in all extremities, normal sensation , normal reflexes PSYCH: Normal mood, normal affect. SKIN: Warm, dry, normal turgor, no visible rashes or lesions. Some small bruises to left upper lip and right side of nose. Source: Patient Exam Limitations: No limitations - Personal History Current Tetanus/Diphtheria Vaccine: Yes Current Tetanus Diphtheria and Acellular Pertussis (TDAP): Yes Tetanus Vaccine Date: less than 10 years - Medical/Surgical History Hx Asthma: No Hx Chronic Respiratory Disease: No Hx Diabetes: No Hx Cardiac Disease: No Hx Renal Disease: Yes Hx Cirrhosis: No Hx Alcoholism: No Hx HIV/AIDS: No Hx Splenectomy or Spleen Trauma: No Other PMH: mulitple myeloma, low platelets, vertigo, osteoporosis, hypothyroid, chronic renal insufficiency, anemia,. ortho (L4-L5 fusion), fall, L pelvic fx 01/29 ,concussion 01/29, cataracts, neoplastic anemia; broken left foot, chemotherapy induced neutropenia,drug induced thrompbocytopenia; transfusion related hemochromatosis, nose bleed/bleeding gums 10/2017 - Family History Significant Family History: No pertinent family hx - Social History Smoking Status: Former smoker Alcohol Use: Sober Drug Use: None Constitutional: Initial Vital Signs Temperature (C) 36.5 C 11/10/17 19:54 Heart Rate 90 11/10/17 19:54 Respiratory Rate 16 11/10/17 19:54 Blood Pressure 102/74 11/10/17 19:54 O2 Sat (%) 94 11/10/17 19:54 O2 Delivery Mode Room Air Allergies/Adverse Reactions: Cephalosporins Allergy (Unknown, Verified 11/10/17 19:57) Unknown Penicillins Allergy (Unknown, Verified 11/10/17 19:57) Rash Sulfa (Sulfonamide Antibiotics) Allergy (Unknown, Verified 11/10/17 19:57) throat swelling fenofibrate nanocrystallized [From Tricor] Allergy (Verified 11/10/17 19:57) Unknown fenofibrate,micronized [From Tricor] Allergy (Verified 11/10/17 19:57) Unknown lovastatin [From Mevacor] Allergy (Verified 11/10/17 19:57) Unknown Home Medications: Medication Instructions Recorded Acetaminophen [Tylenol 325mg (*)] 325 mg PO Q6 PRN 05/31/17 Ascorbic Acid [Vitamin C 500 mg 500 mg PO DAILY 05/31/17 (*)] Deferasirox [Jadenu] 180 mg PO BID 05/31/17 Dexamethasone [DEXAMETHASONE] 1 mg PO DAILY 05/31/17 Herbals/Supplements -Info Only 1 ea PO DAILY 05/31/17 Levothyroxine [Synthroid 137 mcg 137 mcg PO DAILY06 05/31/17 (*)] Loratadine [Claritin 10 mg] 10 mg PO DAILY PRN 05/31/17 valACYclovir [Valtrex (*)] 500 mg PO DAILY 05/31/17 Pomalidomide [Pomalyst] 1 mg PO DAILY 11/11/17 Medical Decision Making - Diagnostics Imaging: Discussed imaging studies w/ bunk house worker Radiologist ED Course/Re-evaluation: We discussed the lab and imaging results. I recommended admission for dehydration. Patient was somewhat reluctant but agreed with the encouragement of her son. This will allow us to ensure she is improving and recheck her kidney function. I have paged hospital service. Head CT ordered in this adult patient for trauma for the following indication: Confusion and thrombocytopenia 11:00 p.m. I discussed the case with Dr. Beck who will admit to medical service. Differential Diagnosis: Partial list of the Differential diagnosis considered include but were not limited to; dehydration, urinary tract infection, sepsis and although unlikely based on the history and physical exam, I also considered intracranial injury, intra-abdominal bleeding, obstruction, ischemia, hemorrhage. - Data Points Laboratory Results: Laboratory Results 11/11/17 04:58 11/11/17 04:58 Microbiology Results: MICROBIOLOGY 11/10/17 22:20 Blood Blood Culture - Preliminary Gram Positive Cocci Clusters 11/10/17 22:20 Blood Blood Panel (PCR) - Final Staph Coagulase Negative 11/10/17 21:55 Blood Blood Culture - Preliminary Medications Given: Discontinued Medications Dexamethasone (Decadron) 1 mg PO DAILY NELSON Stop: 02/24/19 15:44 Last Admin: 11/12/17 10:06 Dose: 1 mg Sodium Chloride (Ns) 1,700 mls @ 3,400 mls/hr 30 ml/kg infuse over 30 min ( 1700 ml) IV EDNOW ONE PRN Reason: Protocol Stop: 11/10/17 21:37 Last Admin: 11/10/17 22:16 Dose: 1,700 mls Sodium Chloride (Ns) 1,000 mls @ 100 mls/hr IV CONT NELSON Stop: 05/09/18 22:59 Last Admin: 11/11/17 21:13 Dose: 1,000 mls Vancomycin HCl 750 mg/ (Dextrose) 165 mls @ 165 mls/hr IV ONCE ONE PRN Reason: Protocol Stop: 11/11/17 21:42 Last Admin: 11/11/17 21:40 Dose: 165 mls Levothyroxine Sodium (Synthroid) 137 mcg PO DAILY06 NELSON Stop: 05/11/18 05:59 Last Admin: 11/12/17 06:08 Dose: 137 mcg Valacyclovir HCl (Valtrex) 500 mg PO DAILY NELSON Stop: 12/11/17 15:44 Last Admin: 11/12/17 10:06 Dose: 500 mg Departure - Departure Disposition: [facility] Acute Clinical Impression: Thrombocytopenia, Failure to thrive in adult, Dehydration Condition: Fair
[2017-11-10 21:58] LABS: INR 1.14 (0.83-1.16); PROTIME(PATIENT) 14.8 SEC (12.0-15.0)
[2017-11-10] MEDS ORDERED: ACETAMINOPHEN 325 MG TAB PO PRN (22:59)
[2017-11-10] MEDS ORDERED: ONDANSETRON 4 MG/2 ML VIAL IVP PRN (22:59)
[2017-11-10] MEDS ORDERED: ONDANSETRON DISINTEGRATING 4 MG TAB PO PRN (22:59)
--- NOTE | 2017-11-10 23:35 | PDGENHP ---
History and Physical - Chief Complaint Fatigue - History of Present Illness 82 yo F w/ hx of melanoma and related pancytopenia presents with fatigue and mild confusion. History mostly obtained from patient's son. He tells me she got a transfusion last Friday. She had a few good days but then became fatigued and somewhat confused. He thought she might have a UTI as she had displayed similar symptoms before in that setting. At the time of my evaluation the patient is A&Ox2 but alert and conversing appropriately. Evaluation in the ED is remarkable only for signs of dehydration (hemoconcentration, WILNER). Infectious work-up is negative. Patient is being admitted for observation of kidney function. Case discussed with ED physician Dr. Wheeler, previous records reviewed in EMR. History Information - Allergies/Home Medication List Allergies/Adverse Reactions: Cephalosporins Allergy (Unknown, Verified 11/10/17 19:57) Unknown Penicillins Allergy (Unknown, Verified 11/10/17 19:57) Rash Sulfa (Sulfonamide Antibiotics) Allergy (Unknown, Verified 11/10/17 19:57) throat swelling fenofibrate nanocrystallized [From Tricor] Allergy (Verified 11/10/17 19:57) Unknown fenofibrate,micronized [From Tricor] Allergy (Verified 11/10/17 19:57) Unknown lovastatin [From Mevacor] Allergy (Verified 11/10/17 19:57) Unknown Home Medications: Acetaminophen [Tylenol 325mg (*)] 325 mg PO Q6 PRN 05/31/17 [Last Taken 11:30] Ascorbic Acid [Vitamin C 500 mg (*)] 500 mg PO DAILY 05/31/17 [Last Taken 12:00] Aspirin EC [Aspirin EC 81 mg (*)] 81 mg PO DAILY 05/31/17 [Last Taken 10/15/17 12:00] Deferasirox [Jadenu] 180 mg PO BID 05/31/17 [Last Taken 10/16/17 08:00] Dexamethasone [DEXAMETHASONE] 1 mg PO DAILY 05/31/17 [Last Taken 10/16/17 08:00] Herbals/Supplements -Info Only 1 ea PO DAILY 05/31/17 [Last Taken 10/16/17 08:00 ] Levothyroxine [Synthroid 137 mcg (*)] 137 mcg PO DAILY06 05/31/17 [Last Taken 08:00] Loratadine [Claritin 10 mg] 10 mg PO DAILY PRN 05/31/17 [Last Taken 10/15/17 12: 00] traMADol [Ultram 50 mg (*)] 50 mg PO DAILY PRN 05/31/17 [Last Taken 10/02/17] valACYclovir [Valtrex (*)] 500 mg PO DAILY 05/31/17 [Last Taken 10/16/17 08:00] I have personally reviewed and updated: family history, medical history - Past Medical History Additional medical history: Multiple Myeloma. Pancytopenia - Surgical History Reports: no pertinent surgical hx Additional surgical history: Kyphoplasties - Family History Additional family history: Asked, denies - Social History Smoking Status: Former smoker Alcohol Use: Sober Drug Use: None Review of Systems Review of Systems: ROS: 10pt was reviewed & negative except for what was stated in HPI & below Physical Exam Physical Exam: Temp Pulse Resp BP Pulse Ox 36.8 C 84 18 122/57 H 97 11/10/17 22:20 11/10/17 23:00 11/10/17 23:00 11/10/17 23:00 11/10/17 23:00 Constitutional: no apparent distress, not in pain Eyes: PERRL, EOMI Ears, Nose, Mouth, Throat: moist mucous membranes, no oral mucosal ulcers Cardiovascular: regular rate and rhythym, no murmur, rub, or gallop Gastrointestinal: normoactive bowel sounds, soft, non-tender abdomen Skin: warm, normal color Musculoskeletal: full muscle strength, no muscle tenderness Neurologic: CN II-XII Intact, other (A&Ox2) Psychiatric: interacting appropriately, not anxious Lab Data & Imaging Review 11/10/17 20:50 11/10/17 20:50 WBC 2.98 10^3/uL (3.80-9.50) L 11/10/17 20:50 RBC 3.03 10^6/uL (4.18-5.33) L 11/10/17 20:50 Hgb 10.2 g/dL (12.6-16.3) L 11/10/17 20:50 Hct 29.5 % (38.0-47.0) L 11/10/17 20:50 MCV 97.4 fL (81.5-99.8) 11/10/17 20:50 MCH 33.7 pg (27.9-34.1) 11/10/17 20:50 MCHC 34.6 g/dL (32.4-36.7) 11/10/17 20:50 RDW 17.2 % (11.5-15.2) H 11/10/17 20:50 Plt Count 15 10^3/uL (150-400) L* 11/10/17 20:50 MPV 11.0 fL (8.7-11.7) 11/10/17 20:50 Neut % (Auto) Not Reported 11/10/17 20:50 Lymph % (Auto) Not Reported 11/10/17 20:50 Butts % (Auto) Not Reported 11/10/17 20:50 Eos % (Auto) Not Reported 11/10/17 20:50 Baso % (Auto) Not Reported 11/10/17 20:50 Nucleat RBC Rel Count Not Reported 11/10/17 20:50 Absolute Neuts (auto) Not Reported 11/10/17 20:50 Absolute Lymphs (auto) Not Reported 11/10/17 20:50 Absolute Monos (auto) Not Reported 11/10/17 20:50 Absolute Eos (auto) Not Reported 11/10/17 20:50 Absolute Basos (auto) Not Reported 11/10/17 20:50 Absolute Nucleated RBC Not Reported 11/10/17 20:50 Immature Gran % Not Reported 11/10/17 20:50 Seg Neutrophils % 47.0 % 11/10/17 20:50 Band Neutrophils % 0.0 % 11/10/17 20:50 Lymphocytes % 41.8 % 11/10/17 20:50 Monocytes % 5.1 % 11/10/17 20:50 Eosinophils % 5.1 % 11/10/17 20:50 Basophils % 1.0 % 11/10/17 20:50 Metamyelocytes % 0.0 % 11/10/17 20:50 Myelocytes % 0.0 % 11/10/17 20:50 Promyelocytes % 0.0 % 11/10/17 20:50 Blast Cells % 0.0 % 11/10/17 20:50 Immature Gran # Not Reported 11/10/17 20:50 Absolute Seg Neuts 1.40 10^/uL (1.70-6.50) L 11/10/17 20:50 Absolute Band Neuts 0.00 10^3/uL (0.00-0.70) 11/10/17 20:50 Absolute Lymphocytes 1.25 10^3/uL (1.00-3.00) 11/10/17 20:50 Absolute Monocytes 0.15 10^3/uL (0.30-0.80) L 11/10/17 20:50 Absolute Eosinophils 0.15 10^3/uL (0.03-0.40) 11/10/17 20:50 Absolute Basophils 0.03 10^3/uL (0.02-0.10) 11/10/17 20:50 Absolute Metamyelocyte 0.00 10^3/mL (0.00-0.00) 11/10/17 20:50 Absolute Myelocytes 0.00 10^3/mL (0.00-0.00) 11/10/17 20:50 Absolute Promyelocytes 0.00 10^3/uL (0.00-0.00) 11/10/17 20:50 Absolute Plasma Cells 0.00 10^3/uL (0.00-0.00) 11/10/17 20:50 Nucleated RBCs 1.0 /100 WBC (0-0) H 11/10/17 20:50 Atypical Lymphocytes 1+ H 11/10/17 20:50 Absolute Blast Cells 0.00 10^3/uL (0.00-0.00) 11/10/17 20:50 Plasma Cells % 0.0 % 11/10/17 20:50 Platelet Estimate DECREASED (ADEQ) L 11/10/17 20:50 Oval Macrocytes 1+ H 11/10/17 20:50 PT 14.8 SEC (12.0-15.0) 11/10/17 20:50 INR 1.14 (0.83-1.16) 11/10/17 20:50 APTT 28.5 SEC (23.0-38.0) 11/10/17 20:50 VBG Lactic Acid 1.0 mmol/L (0.7-2.1) 11/10/17 21:55 Sodium 134 mEq/L (135-145) L 11/10/17 20:50 Potassium 4.3 mEq/L (3.3-5.0) 11/10/17 20:50 Chloride 101 mEq/L (97-110) 11/10/17 20:50 Carbon Dioxide 21 mEq/l (22-31) L 11/10/17 20:50 Anion Gap 12 mEq/L (8-16) 11/10/17 20:50 BUN 35 mg/dL (7-23) H 11/10/17 20:50 Creatinine 2.2 mg/dL (0.6-1.0) H 11/10/17 20:50 Estimated GFR 21 11/10/17 20:50 Glucose 122 mg/dL (70-100) H 11/10/17 20:50 Calcium 9.0 mg/dL (8.5-10.4) 11/10/17 20:50 Total Bilirubin 0.3 mg/dL (0.1-1.4) 11/10/17 20:50 Conjugated Bilirubin 0.1 mg/dL (0.0-0.5) 11/10/17 20:50 Unconjugated Bilirubin 0.2 mg/dL (0.0-1.1) 11/10/17 20:50 AST 27 IU/L (14-46) 11/10/17 20:50 ALT 53 IU/L (9-52) H 11/10/17 20:50 Alkaline Phosphatase 107 IU/L (38-126) 11/10/17 20:50 Total Protein 7.2 g/dL (6.3-8.2) 11/10/17 20:50 Albumin 3.1 g/dL (3.5-5.0) L 11/10/17 20:50 Urine Color YELLOW 11/10/17 20:16 Urine Appearance CLEAR 11/10/17 20:16 Urine pH 5.0 (5.0-7.5) 11/10/17 20:16 Ur Specific [place] 1.010 (1.002-1.030) 11/10/17 20:16 Urine Protein NEGATIVE (NEGATIVE) 11/10/17 20:16 Urine Ketones NEGATIVE (NEGATIVE) 11/10/17 20:16 Urine Blood NEGATIVE (NEGATIVE) 11/10/17 20:16 Urine Nitrate NEGATIVE (NEGATIVE) 11/10/17 20:16 Urine Bilirubin NEGATIVE (NEGATIVE) 11/10/17 20:16 Urine Urobilinogen NEGATIVE EU (0.2-1.0) 11/10/17 20:16 Ur Leukocyte Esterase NEGATIVE (NEGATIVE) 11/10/17 20:16 Urine RBC 1-3 /hpf (0-3) 11/10/17 20:16 Urine WBC 1-3 /hpf (0-3) 11/10/17 20:16 Ur Epithelial Cells TRACE /lpf (NONE-1+) 11/10/17 20:16 Granular Casts 1-5 /lpf (0-1) 11/10/17 20:16 Urine Mucus TRACE /lpf (NONE-1+) 11/10/17 20:16 Urine Glucose NEGATIVE (NEGATIVE) 11/10/17 20:16 Imaging Review: Imaging Impressions Head CT 11/10/17 21:07 Impression: 1. Mild atrophy. 2. No acute hemorrhage, hydrocephalus, or mass effect. 3. Cerebrovascular atherosclerosis. 4. No definite acute infarct. 5. Moderate microvascular ischemic gliosis. 6. No epidural or subdural hematoma. Findings and recommendations discussed with Emergency Department physician, Daryl Wheeler M.D., at 2243 hours, on November 10, 2017. Final report concurs with initial preliminary interpretation. Chest X-Ray 11/10/17 21:08 Impression: 1. Scarring in the lingula, stable since the previous study. 2. No definite pneumonia, pleural effusion, or pneumothorax. Abdomen/Pelvis CT 11/10/17 21:50 Impression: 1. Old bilateral pubic rami and left sacral ala fractures. 2. Old lower thoracic and lumbar kyphoplasty and partial compression fractures of T11-L1. 3. No definite acute fracture. 4. Infrarenal abdominal aortic aneurysm 3.6 cm again noted. 5. No definite abdominal or pelvic hemorrhage although organ laceration is not well visualized without intravenous contrast. 6. Sigmoid diverticulosis without diverticulitis. Attention: This CT examination is specifically designed to evaluate patients who are clinically suspected of having acute obstructive uropathy. This examination does not use radiographic contrast, and as such, provides only a limited evaluation of the abdomen, pelvis and retroperitoneum. If there is further clinical suspicion for pathological conditions other than obstructive uropathy, a complete CT evaluation of the abdomen and pelvis utilizing intravenous, oral, and rectal contrast should be considered. Findings and recommendations discussed with Emergency Department physician, DARYL WHEELER at 22:47 hour, 11/10/2017. Final report concurs with initial preliminary interpretation. Visualized and Interpreted Chest x-ray results: Yes Chest X-Ray results: no infiltrate Assessment & Plan Assessment: 82 yo F w/ MM and related pancytopenia presents with fatigue and mild confusion likely related to dehydration and WILNER. Plan: 1. WILNER - I suspect pre-renal azotemia in setting of poor PO intake this week. Serum Cr 2.2 on admission with baseline in 1-1.3 range. - IVF, recheck BMP in AM - UA unremarkable - Will check FeNa 2. Acute metabolic encephalopathy - Overall this appears mild, patient is currently A&Ox2 but unable to recall details of the last few days. This is likely related to WILNER and mild uremia. Infectious work-up thus far negative. CXR (personally interpreted) does not show pneumonia and UA is not infectious appearing. - Address WILNER as above - Follow blood cultures - PT/OT evaluations 3. Multiple myeloma - Complicated by known pancytopenia Diet - Regular Code - Full Ppx - SCDs Dispo - Admit under observation status
[2017-11-11 05:29] LABS: PLATELET COUNT 15 10^3/uL (150-400)
[2017-11-11] MEDS: NS 1,000 ML IV SCH ×2 (10:55→21:13)
--- NOTE | 2017-11-11 13:12 | ASMTCMCOM ---
CM Note CM Note Notes: Pt's chart reviewed for D/C planning. Pt is an 82 y/o, , female with a hx of melanoma and related pancytopenia who presents with fatigue and mild confusion. Work up in ED revealed dehydration. Her son Ronald was with her in the ED. Ronald's numbers are [phone] and [phone]. Spoke with her primary caregiver. Pt has in-home services every day of the week from 8:30-12:30 and then 3-6. Per CG, Pt's son wants the caregivers to help his mother to bed at 7:30PM. The caregivers help her out of bed in the morning (she is unable to get out of bed on her own, but can rise from a chair), prepare meals, supervise bathing and deliver medicine. Pt has a good deal of dementia according to the CG. Pt has been receiving in-home PT with the focus on her ankle that she broke recently. CG was unsure of PT's name. OT has been ordered. Pt was asleep when CM visited. CM will follow. D/C Plan: TBD Date Signed: 11/11/2017 01:10 PM Electronically Signed By:Irlanda Riley
--- NOTE | 2017-11-11 15:53 | HOSPPROG ---
Hospitalist Progress Note Assessment/Plan: 82 yo F w MM, pancytopenia a/w encephalopathy and WILNER WILNER: improving, but not at baseline continue IVF encephalopathy: multifactorial improving thrombocytopenia: chronic, albeit a bit worse follow no SHERWOOD non con headt CT O dispo: inpatient Subjective: per caregiver, and patient. more alert. ct images reviewed/interp by me Objective: Vital Signs Temp Pulse Resp BP Pulse Ox 36.8 C 77 14 126/68 H 96 11/11/17 15:13 11/11/17 15:13 11/11/17 15:13 11/11/17 15:13 11/11/17 15:13 Laboratory Results 11/11/17 04:58 11/11/17 04:58 11/10/17 11/11/17 11/12/17 05:59 05:59 05:59 Intake Total 1773 Output Total 1150 400 Balance 623 -400 PT 14.8 SEC (12.0-15.0) 11/10/17 20:50 INR 1.14 (0.83-1.16) 11/10/17 20:50 - Physical Exam Constitutional: no apparent distress, appears nourished Eyes: PERRL, anicteric sclera Ears, Nose, Mouth, Throat: moist mucous membranes, hearing normal Cardiovascular: regular rate and rhythym, systolic murmur Respiratory: no respiratory distress, no rales or rhonchi Gastrointestinal: normoactive bowel sounds, soft, non-tender abdomen Genitourinary: no bladder fullness, No waters in urethra Skin: warm, normal color Musculoskeletal: full muscle strength Neurologic: AAOx3, sensation intact bilaterally Psychiatric: interacting appropriately ICD10 Worksheet Patient Problems: Problems Problem Status Onset Dehydration Acute Failure to thrive in adult Acute Thrombocytopenia Acute Acute exacerbation of chronic bronchitis Acute Anemia Acute Anemia in neoplastic disease Acute Chemotherapy induced thrombocytopenia Acute Closed stable fracture of multiple pubic rami Acute Fall at home Acute Fracture of left superior pubic ramus Acute Hand pain Acute Nausea and vomiting Acute Weakness Acute Gait instability Chronic Multiple myeloma Chronic
[2017-11-11] MEDS: valACYclovir 500 MG TAB PO SCH (16:32)
[2017-11-11] MEDS: DEXAMETHASONE 0.5 MG TAB PO SCH (16:32)
--- NOTE | 2017-11-11 18:01 | PDMN ---
Medical Necessity Medical necessity: [facility] [id number] ARF: 82 y/o w/ hx multiple myeloma and related pancytopenia presents with WILNER, fatigue and confusion. Creat 2.2 w/ baseline 1 -1.3 range, acute metabolic encephalopathy, BC pending, PT/OT consults. Thrombocytopenia worsening, WILNER and encephalopathy improving but not at baseline. Cont IV fluids, monitor labs, Per MD order, status change to inpatient 11/11/17 @ 1554.
[2017-11-11] MEDS ORDERED: VANCOMYCIN 750 MG in D5W 150 ML IV ONE (20:43)
[2017-11-11] MEDS ORDERED: DEFERASIROX 180 MG PO SCH (21:00)
[2017-11-12 04:55] LABS: PLATELET COUNT 15 10^3/uL (150-400)
[2017-11-12] MEDS ORDERED: LEVOTHYROXINE 137 MCG TAB PO SCH (06:00)
[2017-11-12] MEDS ORDERED: POMALIDOMIDE 1 MG PO SCH (09:00)
[2017-11-12] MEDS ORDERED: Herbals/Supplements -Info Only PO SCH (09:00)
[2017-11-12] MEDS ORDERED: CETIRIZINE 10 MG TAB PO PRN (09:00)
[2017-11-12] MEDS: DEXAMETHASONE 0.5 MG TAB PO SCH (10:06)
[2017-11-12] MEDS: valACYclovir 500 MG TAB PO SCH (10:06)
[2017-11-12 12:07] VITALS: BP 125/62
--- NOTE | 2017-11-12 14:49 | HOSPPROG ---
Hospitalist Progress Note Assessment/Plan: 82 yo F w MM, pancytopenia a/w encephalopathy and WILNER WILNER: improved to baseline continue IVF encephalopathy: multifactorial improving thrombocytopenia: chronic, albeit a bit worse follow no SHERWOOD non con headt CT O dispo: home today > 30 minutes Subjective: cr at baseline. ready for dc Objective: Vital Signs Temp Pulse Resp BP Pulse Ox 36.6 C 79 16 125/62 H 98 11/12/17 12:00 11/12/17 12:00 11/12/17 12:00 11/12/17 12:00 11/12/17 12:00 Laboratory Results 11/12/17 04:39 11/12/17 04:39 11/11/17 11/12/17 11/13/17 05:59 05:59 05:59 Intake Total 1700 2845 Balance 1700 2845 PT 14.8 SEC (12.0-15.0) 11/10/17 20:50 INR 1.14 (0.83-1.16) 11/10/17 20:50 - Physical Exam Constitutional: no apparent distress, appears nourished Eyes: PERRL, anicteric sclera Ears, Nose, Mouth, Throat: moist mucous membranes, hearing normal Cardiovascular: regular rate and rhythym, no murmur, rub, or gallop Respiratory: no respiratory distress, no rales or rhonchi Gastrointestinal: normoactive bowel sounds, soft, non-tender abdomen Genitourinary: No waters in urethra Skin: warm, mottled Musculoskeletal: full muscle strength ICD10 Worksheet Patient Problems: Problems Problem Status Onset Dehydration Acute Failure to thrive in adult Acute Thrombocytopenia Acute Acute exacerbation of chronic bronchitis Acute Anemia Acute Anemia in neoplastic disease Acute Chemotherapy induced thrombocytopenia Acute Closed stable fracture of multiple pubic rami Acute Fall at home Acute Fracture of left superior pubic ramus Acute Hand pain Acute Nausea and vomiting Acute Weakness Acute Gait instability Chronic Multiple myeloma Chronic
--- NOTE | 2017-11-12 15:06 | GDS ---
[f rep st] DISCHARGE SUMMARY DISCHARGE DIAGNOSES: 1. Encephalopathy, now resolved. 2. Acute kidney injury secondary to poor p.o. intake, now resolved. HOSPITAL COURSE: Please see admission history and physical by Dr. Demetrius Naidu. The patien t presented with fatigue and mild confusion. Creatinine was elevated at 2.2 from a baseline of about 1.3, consistent with prerenal azotemia. She was volume resuscitated with IV fluids and improved. S he has thrombocytopenia that is chronic and stable. She has pancytopenia actually from her known nathalie anoma that has been stable. She is discharged home on unchanged medication regimen. /[id number]/MODL
--- NOTE | 2017-11-12 15:46 | ASMTDCNOTE ---
Case Management Discharge Discharge Order Complete? Answers: Yes Patient to Obtain Answers: via Family Medications Transportation Arranged Answers: Family/Friends Family Notified Answers: Yes Discharge Comments Notes: Patient discharged home with son Ronald. He has caregiving services (in place pre-admission) for her during the day and he is there at night. She has home PT through her PCP Dr Amin. Date Signed: 11/12/2017 03:46 PM Electronically Signed By:Denisa Lai RN
== END 2017-11-12 16:32 | disposition home health service (06) | DRG 682 ==
LOC: F1N 23:56 → OBSVTOIN 11-11 15:54
PROVIDERS: ADMIT Student in an Organized Health Care Education/Training Program; ATTEND Student in an Organized Health Care Education/Training Program
DX: N17.9 Acute kidney failure, unspecified (principal); E86.0 Dehydration; G93.41 Metabolic encephalopathy; C90.00 Multiple myeloma not having achieved remission; D61.818 Other pancytopenia; D69.6 Thrombocytopenia, unspecified; E03.9 Hypothyroidism, unspecified; Z87.891 Personal history of nicotine dependence; Z87.440 Personal history of urinary (tract) infections
CPT/HCPCS: 97165-GO; G0378; G8987-GO-CJ; G8988-GO-CJ; J3370

== ENCOUNTER 2017-12-10 12:13 | Outpatient (CLI) | payer OTHER ==
[2017-12-10] MEDS ORDERED: ACETAMINOPHEN 325 MG TAB PO ONE (12:45)
[2017-12-10] MEDS ORDERED: diphenhydrAMINE 25 MG CAP PO ONE (12:45)
[2017-12-10 13:12] VITALS: BP 94/58
== END 2017-12-10 19:35 | disposition home or self-care (01) ==
LOC: FOBOP 12:13
PROVIDERS: ATTEND Internal Medicine Hematology & Oncology
PROC: 30233N1 Transfusion of Nonautologous Red Blood Cells into Peripheral Vein, Percutaneous Approach (ICD-10-PCS; principal; 2017-12-10)
DX: C90.00 Multiple myeloma not having achieved remission (principal)
CPT/HCPCS: 36430; J1642; P9016; P9035; 86850-90; 86870-90; 86905-90; 86922-90; P9100

== ENCOUNTER → 2017-12-18 | Outpatient (CLI) | payer OTHER ==
[~2017-12-18] MED LIST changes: -ACETAMINOPHEN 325 MG TAB ONE
== END ==
LOC: FOBOP 10:43
PROVIDERS: ATTEND Internal Medicine Hematology & Oncology
PROC: 30233R1 Transfusion of Nonautologous Platelets into Peripheral Vein, Percutaneous Approach (ICD-10-PCS; principal; 2017-12-18)
DX: C90.00 Multiple myeloma not having achieved remission (principal)
CPT/HCPCS: 36430; J1642; P9035; P9100

== ENCOUNTER → 2017-12-31 | Outpatient (CLI) | payer OTHER | LOC: RMCCLAB 06:09 → EDSTATUS 20:03 → FOBOP 20:05 | PROVIDERS: ATTEND Internal Medicine Hematology & Oncology | PROC: 30233N1 Transfusion of Nonautologous Red Blood Cells into Peripheral Vein, Percutaneous Approach (ICD-10-PCS; principal; 2017-12-31) | DX: C90.00 Multiple myeloma not having achieved remission (principal); N18.9 Chronic kidney disease, unspecified; D63.0 Anemia in neoplastic disease; E83.111 Hemochromatosis due to repeated red blood cell transfusions; D70.9 Neutropenia, unspecified; K58.9 Irritable bowel syndrome, unspecified; E03.9 Hypothyroidism, unspecified; D69.6 Thrombocytopenia, unspecified | CPT/HCPCS: 36430; J1642; P9016; 86850-90; 86870-90; 86905-90; 86922-90; 99001-90; P9035; P9100 ==

== ENCOUNTER 2018-01-07 16:13 | Outpatient (CLI) | payer OTHER ==
[2018-01-07] MEDS ORDERED: diphenhydrAMINE 25 MG CAP PO ONE (16:30)
[2018-01-07] MEDS ORDERED: ACETAMINOPHEN 325 MG TAB PO ONE (16:30)
== END 2018-01-07 19:54 | disposition home or self-care (01) ==
LOC: FOBOP 16:13
PROVIDERS: ATTEND Internal Medicine Hematology & Oncology
PROC: 30233R1 Transfusion of Nonautologous Platelets into Peripheral Vein, Percutaneous Approach (ICD-10-PCS; principal; 2018-01-07)
DX: C90.00 Multiple myeloma not having achieved remission (principal)
CPT/HCPCS: 36430; J1642; P9073

== ENCOUNTER 2018-01-15 11:27 | Outpatient (CLI) | payer OTHER ==
[2018-01-15] MEDS ORDERED: ACETAMINOPHEN 325 MG TAB ONE (11:59)
[2018-01-15] MEDS ORDERED: ACETAMINOPHEN 325 MG TAB PO ONE (12:00)
[2018-01-15] MEDS ORDERED: diphenhydrAMINE 25 MG CAP PO ONE (12:00)
== END 2018-01-15 13:57 | disposition home or self-care (01) ==
LOC: FOBOP 11:27
PROVIDERS: ATTEND Internal Medicine Hematology & Oncology
PROC: 30233R1 Transfusion of Nonautologous Platelets into Peripheral Vein, Percutaneous Approach (ICD-10-PCS; principal; 2018-01-15)
DX: C90.00 Multiple myeloma not having achieved remission (principal)
CPT/HCPCS: 36430; J1642; P9035

== ENCOUNTER → 2018-01-21 | Outpatient (CLI) | payer OTHER | LOC: F1NOP 15:18 | PROVIDERS: ATTEND Internal Medicine Hematology & Oncology | PROC: 30233N1 Transfusion of Nonautologous Red Blood Cells into Peripheral Vein, Percutaneous Approach (ICD-10-PCS; principal; 2018-01-21) | PROC: 30233R1 Transfusion of Nonautologous Platelets into Peripheral Vein, Percutaneous Approach (ICD-10-PCS; principal; 2018-01-21) | DX: C90.00 Multiple myeloma not having achieved remission (principal); D63.0 Anemia in neoplastic disease; E83.111 Hemochromatosis due to repeated red blood cell transfusions; D70.9 Neutropenia, unspecified; N18.9 Chronic kidney disease, unspecified; K58.9 Irritable bowel syndrome, unspecified; E03.9 Hypothyroidism, unspecified; E53.9 Vitamin B deficiency, unspecified; R41.1 Anterograde amnesia; R53.83 Other fatigue; D69.6 Thrombocytopenia, unspecified | CPT/HCPCS: 36430; P9073; 86870-90; 86905-90; 86922-90; 99001-90 ==

== ENCOUNTER → 2018-01-22 | Outpatient (CLI) | payer OTHER ==
[~2018-01-22] MED LIST changes: +ACETAMINOPHEN 325 MG TAB ONE
== END ==
LOC: F1NOP 13:10 → UNDOADMOB 13:47 → FLD 13:47 → UNDODISOB 22:22
PROVIDERS: ATTEND Internal Medicine Hematology & Oncology
DX: C90.00 Multiple myeloma not having achieved remission (principal); D63.0 Anemia in neoplastic disease; E83.111 Hemochromatosis due to repeated red blood cell transfusions; D70.9 Neutropenia, unspecified; N18.9 Chronic kidney disease, unspecified; K58.9 Irritable bowel syndrome, unspecified; E03.9 Hypothyroidism, unspecified; R41.3 Other amnesia; D69.6 Thrombocytopenia, unspecified
CPT/HCPCS: 36430; J1642; P9016; P9040; 86870-90; 86905-90; 86922-90; 99001-90

== ENCOUNTER → 2018-01-22 | Outpatient (CLI) | payer OTHER ==
[~2018-01-22] MED LIST changes: -ACETAMINOPHEN 325 MG TAB ONE
== END ==
LOC: FIMAGING 11:05
PROVIDERS: ATTEND Internal Medicine Hematology & Oncology
DX: I60.9 Nontraumatic subarachnoid hemorrhage, unspecified (principal); C90.02 Multiple myeloma in relapse
CPT/HCPCS: 36430; 70450; J1642; P9016; P9040

== ENCOUNTER → 2018-01-29 | Outpatient (CLI) | payer OTHER | LOC: FOBOP 17:41 | PROVIDERS: ATTEND Internal Medicine Hematology & Oncology | DX: C90.00 Multiple myeloma not having achieved remission (principal) | CPT/HCPCS: 36430; P9035; P9100 ==

== ENCOUNTER → 2018-02-03 | Day surgery (SDC) | payer OTHER ==
[~2018-02-03] MED LIST changes: +ACETAMINOPHEN 325 MG TAB ONE; +NORFLURANE/HFC SPRAY 103.5 ML SPRAY TP ONE
== END | disposition home or self-care (01) ==
LOC: RMCCLAB 05:41 → EDSTATUS 16:06 → FOBOP 16:26
PROVIDERS: ATTEND Internal Medicine Hematology & Oncology
PROC: 30233R1 Transfusion of Nonautologous Platelets into Peripheral Vein, Percutaneous Approach (ICD-10-PCS; principal; 2018-02-03)
DX: C90.02 Multiple myeloma in relapse (principal)
CPT/HCPCS: 36430; P9035; 82784-90; 86334-90; J1642

== ENCOUNTER 2018-02-12 10:36 | Outpatient (CLI) | payer OTHER ==
[2018-02-12] MEDS ORDERED: ACETAMINOPHEN 325 MG TAB PO ONE (11:30)
[2018-02-12] MEDS ORDERED: diphenhydrAMINE 25 MG CAP PO ONE (11:30)
[2018-02-12] MEDS ORDERED: DIPHENOXYLATE/ATROPINE LOMOTIL 1 TAB PO PRN (15:12)
== END 2018-02-12 17:25 | disposition home or self-care (01) ==
LOC: FOBOP 10:36
PROVIDERS: ATTEND Internal Medicine Hematology & Oncology
PROC: 30233N1 Transfusion of Nonautologous Red Blood Cells into Peripheral Vein, Percutaneous Approach (ICD-10-PCS; principal; 2018-02-12)
DX: C90.00 Multiple myeloma not having achieved remission (principal)
CPT/HCPCS: 36430; J1642; P9016; P9035; P9040; 86850-90; 86870-90; 86905-90; 86922-90; 99001-90

== ENCOUNTER 2018-02-18 17:05 | Outpatient (CLI) | payer OTHER ==
[2018-02-18] MEDS ORDERED: ACETAMINOPHEN 325 MG TAB PO ONE (17:45)
== END 2018-02-18 20:05 | disposition home or self-care (01) ==
LOC: FOBOP 17:05
PROVIDERS: ATTEND Internal Medicine Hematology & Oncology
PROC: 30233R1 Transfusion of Nonautologous Platelets into Peripheral Vein, Percutaneous Approach (ICD-10-PCS; principal; 2018-02-18)
DX: C90.00 Multiple myeloma not having achieved remission (principal); Z88.2 Allergy status to sulfonamides
CPT/HCPCS: 36430; J1642; P9035

== ENCOUNTER 2018-02-25 12:41 | Outpatient (CLI) | payer OTHER ==
[2018-02-25] MEDS ORDERED: ACETAMINOPHEN 325 MG TAB PO ONE (13:00)
== END 2018-02-25 15:00 | disposition home or self-care (01) ==
LOC: FOBOP 12:41
PROVIDERS: ATTEND Internal Medicine Hematology & Oncology
PROC: 30233R1 Transfusion of Nonautologous Platelets into Peripheral Vein, Percutaneous Approach (ICD-10-PCS; principal; 2018-02-25)
DX: C90.00 Multiple myeloma not having achieved remission (principal); Z88.0 Allergy status to penicillin; Z88.2 Allergy status to sulfonamides
CPT/HCPCS: 36430; J1642; P9035

== ENCOUNTER → 2018-03-05 | Outpatient (CLI) | payer OTHER ==
[~2018-03-05] MED LIST changes: -NORFLURANE/HFC SPRAY 103.5 ML SPRAY TP ONE
[2018-03-05 12:39] VITALS: BP 89/47
== END ==
LOC: FOBOP 11:42
PROVIDERS: ATTEND Internal Medicine Hematology & Oncology
DX: C90.00 Multiple myeloma not having achieved remission (principal)
CPT/HCPCS: 36430; J1642; P9016; P9035; 86850-90; 86870-90; 86905-90; 86922-90; P9100

== ENCOUNTER 2018-03-11 15:28 | Outpatient (CLI) | payer OTHER ==
[2018-03-11] MEDS ORDERED: ACETAMINOPHEN 325 MG TAB PO ONE (15:45)
[2018-03-11] MEDS ORDERED: diphenhydrAMINE 25 MG CAP PO ONE (15:45)
== END 2018-03-11 17:59 | disposition home or self-care (01) ==
LOC: FOBOP 15:28
PROVIDERS: ATTEND Internal Medicine Hematology & Oncology
PROC: 30233R1 Transfusion of Nonautologous Platelets into Peripheral Vein, Percutaneous Approach (ICD-10-PCS; principal; 2018-03-11)
DX: C90.00 Multiple myeloma not having achieved remission (principal); D64.81 Anemia due to antineoplastic chemotherapy; N18.9 Chronic kidney disease, unspecified; D69.6 Thrombocytopenia, unspecified; E03.9 Hypothyroidism, unspecified
CPT/HCPCS: 36430; 90686; J1642; P9073; 82784-90; 86334-90

== ENCOUNTER → 2018-03-19 | Outpatient (CLI) | payer OTHER | LOC: FOBOP 10:29 | PROVIDERS: ATTEND Internal Medicine Hematology & Oncology | PROC: 30233N1 Transfusion of Nonautologous Red Blood Cells into Peripheral Vein, Percutaneous Approach (ICD-10-PCS; principal; 2018-03-19) | PROC: 30233R1 Transfusion of Nonautologous Platelets into Peripheral Vein, Percutaneous Approach (ICD-10-PCS; principal; 2018-03-19) | DX: C90.00 Multiple myeloma not having achieved remission (principal) | CPT/HCPCS: 36430; J1642; P9016; P9035; 86850-90; 86870-90; 86922-90 ==

== ENCOUNTER → 2018-03-26 | Outpatient (CLI) | payer OTHER ==
[~2018-03-26] MED LIST changes: -ACETAMINOPHEN 325 MG TAB ONE; -ACETAMINOPHEN 325 MG TAB PO ONE; +NORFLURANE/HFC SPRAY 103.5 ML SPRAY TP ONE; -diphenhydrAMINE 25 MG CAP PO ONE
== END ==
LOC: FOBOP 11:15
PROVIDERS: ATTEND Internal Medicine Hematology & Oncology
PROC: 30233R1 Transfusion of Nonautologous Platelets into Peripheral Vein, Percutaneous Approach (ICD-10-PCS; principal; 2018-03-26)
DX: C90.00 Multiple myeloma not having achieved remission (principal); D70.9 Neutropenia, unspecified; E83.111 Hemochromatosis due to repeated red blood cell transfusions; D64.81 Anemia due to antineoplastic chemotherapy; K58.9 Irritable bowel syndrome, unspecified; E03.9 Hypothyroidism, unspecified; E53.9 Vitamin B deficiency, unspecified; R41.1 Anterograde amnesia; N18.9 Chronic kidney disease, unspecified; R53.83 Other fatigue; D69.6 Thrombocytopenia, unspecified
CPT/HCPCS: 36430; P9035

== ENCOUNTER 2018-04-01 13:40 | Outpatient (CLI) | payer OTHER ==
[2018-04-01] MEDS ORDERED: diphenhydrAMINE 25 MG CAP PO ONE ×2 (14:26→14:45)
[2018-04-01] MEDS ORDERED: ACETAMINOPHEN 325 MG TAB ONE (14:26)
[2018-04-01] MEDS ORDERED: ACETAMINOPHEN 325 MG TAB PO ONE (14:45)
[2018-04-01 19:03] LABS: PLATELET COUNT 67 10^3/uL (150-400)
== END 2018-04-01 18:09 | disposition home or self-care (01) ==
LOC: FOBOP 13:40
PROVIDERS: ATTEND Internal Medicine Hematology & Oncology
PROC: 30233N1 Transfusion of Nonautologous Red Blood Cells into Peripheral Vein, Percutaneous Approach (ICD-10-PCS; principal; 2018-04-01)
PROC: 30233R1 Transfusion of Nonautologous Platelets into Peripheral Vein, Percutaneous Approach (ICD-10-PCS; principal; 2018-04-01)
DX: C90.00 Multiple myeloma not having achieved remission (principal)
CPT/HCPCS: 36430; J1642; P9035; P9100

== ENCOUNTER → 2018-04-02 | Outpatient (CLI) | payer OTHER ==
[~2018-04-02] MED LIST changes: +ACETAMINOPHEN 325 MG TAB ONE; +ACETAMINOPHEN 325 MG TAB PO ONE; -NORFLURANE/HFC SPRAY 103.5 ML SPRAY TP ONE; +diphenhydrAMINE 25 MG CAP PO ONE
== END ==
LOC: FOBOP 10:47
PROVIDERS: ATTEND Internal Medicine Hematology & Oncology
PROC: 30233R1 Transfusion of Nonautologous Platelets into Peripheral Vein, Percutaneous Approach (ICD-10-PCS; principal; 2018-04-02)
PROC: 30233N1 Transfusion of Nonautologous Red Blood Cells into Peripheral Vein, Percutaneous Approach (ICD-10-PCS; principal; 2018-04-02)
DX: C90.00 Multiple myeloma not having achieved remission (principal)
CPT/HCPCS: 36430; J1642; P9016; 86850-90; 86870-90; 86905-90; 86922-90; 99001-90

== ENCOUNTER 2018-04-08 14:53 | Outpatient (CLI) | payer OTHER ==
[2018-04-08] MEDS ORDERED: ACETAMINOPHEN 325 MG TAB PO ONE (15:15)
[2018-04-08] MEDS ORDERED: diphenhydrAMINE 25 MG CAP PO ONE (15:15)
== END 2018-04-08 18:10 | disposition home or self-care (01) ==
LOC: FOBOP 14:53
PROVIDERS: ATTEND Internal Medicine Hematology & Oncology
PROC: 30233R1 Transfusion of Nonautologous Platelets into Peripheral Vein, Percutaneous Approach (ICD-10-PCS; principal; 2018-04-08)
DX: C90.00 Multiple myeloma not having achieved remission (principal)
CPT/HCPCS: 36430; J1642; P9035; 82523-90; 82784-90

== ENCOUNTER → 2018-04-16 | Outpatient (CLI) | payer OTHER ==
[~2018-04-16] MED LIST changes: -ACETAMINOPHEN 325 MG TAB ONE
[2018-04-16 18:12] VITALS: BP 118/56
== END ==
LOC: FOBOP 10:01 → EEVIPCON 10:15
PROVIDERS: ATTEND Internal Medicine Hematology & Oncology
PROC: 30233N1 Transfusion of Nonautologous Red Blood Cells into Peripheral Vein, Percutaneous Approach (ICD-10-PCS; principal; 2018-04-16)
DX: C90.00 Multiple myeloma not having achieved remission (principal); E83.111 Hemochromatosis due to repeated red blood cell transfusions; D64.81 Anemia due to antineoplastic chemotherapy; D70.9 Neutropenia, unspecified; K58.9 Irritable bowel syndrome, unspecified; E03.9 Hypothyroidism, unspecified; R41.3 Other amnesia; N18.9 Chronic kidney disease, unspecified; R53.83 Other fatigue; D69.6 Thrombocytopenia, unspecified
CPT/HCPCS: 36430; J1642; P9016; P9035; 86850-90; 86870-90; 86905-90; 86922-90; 99001-90

== ENCOUNTER 2018-04-22 14:10 | Outpatient (CLI) | payer OTHER ==
[2018-04-22] MEDS ORDERED: NORFLURANE/HFC SPRAY 103.5 ML SPRAY TP PRN (14:39)
[2018-04-22] MEDS ORDERED: diphenhydrAMINE 25 MG CAP PO ONE (14:45)
[2018-04-22] MEDS ORDERED: ACETAMINOPHEN 325 MG TAB PO ONE (14:45)
== END 2018-04-22 17:48 | disposition home or self-care (01) ==
LOC: FOBOP 14:10
PROVIDERS: ATTEND Internal Medicine Hematology & Oncology
PROC: 30233R1 Transfusion of Nonautologous Platelets into Peripheral Vein, Percutaneous Approach (ICD-10-PCS; principal; 2018-04-22)
DX: C90.00 Multiple myeloma not having achieved remission (principal); D70.9 Neutropenia, unspecified; D64.81 Anemia due to antineoplastic chemotherapy; E83.111 Hemochromatosis due to repeated red blood cell transfusions; K58.9 Irritable bowel syndrome, unspecified; E03.9 Hypothyroidism, unspecified; R41.1 Anterograde amnesia; N18.9 Chronic kidney disease, unspecified; D69.6 Thrombocytopenia, unspecified; R53.83 Other fatigue
CPT/HCPCS: 36430; P9035

== ENCOUNTER 2018-04-29 08:37 | Outpatient (CLI) | payer OTHER ==
[2018-04-29] MEDS ORDERED: ACETAMINOPHEN 325 MG TAB PO ONE (09:00)
[2018-04-29] MEDS ORDERED: diphenhydrAMINE 25 MG CAP PO ONE (09:00)
== END 2018-04-29 11:40 | disposition home or self-care (01) ==
LOC: FOBOP 08:37
PROVIDERS: ATTEND Internal Medicine Hematology & Oncology
PROC: 30233R1 Transfusion of Nonautologous Platelets into Peripheral Vein, Percutaneous Approach (ICD-10-PCS; principal; 2018-04-29)
DX: C90.00 Multiple myeloma not having achieved remission (principal)
CPT/HCPCS: 36430; J1642; P9035; P9100

== ENCOUNTER 2018-04-30 11:17 | Outpatient (CLI) | payer OTHER ==
[2018-04-30 14:24] VITALS: BP 91/44
== END 2018-04-30 17:15 | disposition home or self-care (01) ==
LOC: FOBOP 11:17
PROVIDERS: ATTEND Internal Medicine Hematology & Oncology
PROC: 30233N1 Transfusion of Nonautologous Red Blood Cells into Peripheral Vein, Percutaneous Approach (ICD-10-PCS; principal; 2018-04-30)
DX: C90.00 Multiple myeloma not having achieved remission (principal); D70.9 Neutropenia, unspecified; E83.111 Hemochromatosis due to repeated red blood cell transfusions; D63.0 Anemia in neoplastic disease; K58.9 Irritable bowel syndrome, unspecified; E03.9 Hypothyroidism, unspecified; R41.3 Other amnesia; D69.6 Thrombocytopenia, unspecified
CPT/HCPCS: 36430; J1642; P9016; 86850-90; 86870-90; 86905-90; 86922-90; 99001-90

== ENCOUNTER 2018-05-06 14:57 | Outpatient (CLI) | payer OTHER | END 2018-05-06 18:00 | disposition home or self-care (01) | LOC: FOBOP 14:57 ==

== ENCOUNTER → 2018-05-13 | Outpatient (CLI) | payer OTHER ==
[~2018-05-13] MED LIST changes: +HEPARIN PRESERV FREE 1 UNIT/1 ML 5 ML SYR IVP SCH; -diphenhydrAMINE 25 MG CAP PO ONE; +diphenhydrAMINE 25 MG CAP PO SCH
== END ==
LOC: FOBOP 13:37
PROVIDERS: ATTEND Internal Medicine Hematology & Oncology
PROC: 30253R1 (ICD-10-PCS; principal; 2018-05-13)
DX: C90.00 Multiple myeloma not having achieved remission (principal)
CPT/HCPCS: 36430; J1642; P9035

== ENCOUNTER → 2018-05-20 | Outpatient (CLI) | payer OTHER | LOC: FOBOP 16:36 | PROVIDERS: ATTEND Internal Medicine Hematology & Oncology | DX: C90.00 Multiple myeloma not having achieved remission (principal) | CPT/HCPCS: 36430; J1642; P9035 ==

== ENCOUNTER 2018-05-21 11:21 | Outpatient (CLI) | payer OTHER ==
[2018-05-21] MEDS ORDERED: IOPAMIDOL (ISOVUE-300) 100 ML BTL ONE (12:16)
== END 2018-05-21 15:45 | disposition home or self-care (01) ==
LOC: FOBOP 11:21
PROVIDERS: ATTEND Internal Medicine Hematology & Oncology
DX: C90.00 Multiple myeloma not having achieved remission (principal)
CPT/HCPCS: 36430; J1642; J1644; P9016; Q9967; 86850-90; 86870-90; 86905-90; 86922-90

== ENCOUNTER 2018-05-28 10:55 | Outpatient (CLI) | payer OTHER | END 2018-05-28 13:22 | disposition home or self-care (01) | LOC: FOBOP 10:55 | PROVIDERS: ATTEND Internal Medicine Hematology & Oncology | PROC: 30233R1 Transfusion of Nonautologous Platelets into Peripheral Vein, Percutaneous Approach (ICD-10-PCS; principal; 2018-05-28) | DX: C90.02 Multiple myeloma in relapse (principal) | CPT/HCPCS: 36430; J1642; P9035; 82784-90; 86334-90; P9100 ==

== ENCOUNTER → 2018-06-04 | Outpatient (CLI) | payer OTHER ==
[~2018-06-04] MED LIST changes: -HEPARIN PRESERV FREE 1 UNIT/1 ML 5 ML SYR IVP SCH; -diphenhydrAMINE 25 MG CAP PO SCH
[2018-06-04 12:41] VITALS: BP 98/54
== END ==
LOC: FOBOP 11:59
PROVIDERS: ATTEND Internal Medicine Hematology & Oncology
PROC: 30233R1 Transfusion of Nonautologous Platelets into Peripheral Vein, Percutaneous Approach (ICD-10-PCS; principal; 2018-06-04)
DX: C90.00 Multiple myeloma not having achieved remission (principal)
CPT/HCPCS: 36430; J1642; P9016; P9073; 86905-90; 86922-90; 99001-90

== ENCOUNTER 2018-06-10 14:01 | Outpatient (CLI) | payer OTHER | END 2018-06-10 17:49 | disposition home or self-care (01) | LOC: FOBOP 14:01 | PROVIDERS: ATTEND Internal Medicine Hematology & Oncology | PROC: 30233R1 Transfusion of Nonautologous Platelets into Peripheral Vein, Percutaneous Approach (ICD-10-PCS; principal; 2018-06-10) | DX: C90.00 Multiple myeloma not having achieved remission (principal) | CPT/HCPCS: 36430; J1642; P9035 ==

== ENCOUNTER 2018-06-17 14:33 | Outpatient (CLI) | payer OTHER ==
[2018-06-17] MEDS ORDERED: diphenhydrAMINE 25 MG CAP PO ONE (15:00)
[2018-06-17] MEDS ORDERED: ACETAMINOPHEN 325 MG TAB PO ONE (15:00)
== END 2018-06-17 16:55 | disposition home or self-care (01) ==
LOC: FOBOP 14:33
PROVIDERS: ATTEND Internal Medicine Hematology & Oncology
PROC: 30233R1 Transfusion of Nonautologous Platelets into Peripheral Vein, Percutaneous Approach (ICD-10-PCS; principal; 2018-06-17)
DX: C90.00 Multiple myeloma not having achieved remission (principal); E83.111 Hemochromatosis due to repeated red blood cell transfusions; D64.81 Anemia due to antineoplastic chemotherapy; D70.9 Neutropenia, unspecified; K58.9 Irritable bowel syndrome, unspecified; R41.3 Other amnesia; R53.83 Other fatigue; E03.9 Hypothyroidism, unspecified; N18.9 Chronic kidney disease, unspecified; D69.6 Thrombocytopenia, unspecified
CPT/HCPCS: 36430; J1642; P9035

== ENCOUNTER 2018-06-24 12:57 | Outpatient (CLI) | payer OTHER | END 2018-06-24 15:10 | disposition home or self-care (01) | LOC: FOBOP 12:57 | PROVIDERS: ATTEND Internal Medicine Hematology & Oncology | PROC: 30233N1 Transfusion of Nonautologous Red Blood Cells into Peripheral Vein, Percutaneous Approach (ICD-10-PCS; principal; 2018-06-24) | DX: C90.00 Multiple myeloma not having achieved remission (principal) | CPT/HCPCS: 36430; J1642; P9035; 99001-90 ==

== ENCOUNTER → 2018-06-25 | Outpatient (CLI) | payer OTHER | LOC: FOBOP 11:34 | PROVIDERS: ATTEND Internal Medicine Hematology & Oncology | PROC: 30233N1 Transfusion of Nonautologous Red Blood Cells into Peripheral Vein, Percutaneous Approach (ICD-10-PCS; principal; 2018-06-25) | PROC: 30233R1 Transfusion of Nonautologous Platelets into Peripheral Vein, Percutaneous Approach (ICD-10-PCS; 2018-06-25) | DX: C90.00 Multiple myeloma not having achieved remission (principal) | CPT/HCPCS: 36430; J1642; P9016; 86870-90; 86905-90; 86922-90; 99001-90 ==

== ENCOUNTER 2018-07-07 11:47 | Inpatient (IN) | payer OTHER ==
[2018-07-07] MEDS ORDERED: NS 500 ML IV ONE (11:53)
[2018-07-07] MEDS ORDERED: PANTOPRAZOLE SODIUM 40 MG VIAL IVP ONE (12:18)
--- NOTE | 2018-07-07 12:45 | EDPHY ---
H & P Time Seen by Provider: 07/07/18 11:53 HPI/ROS: HPI Lightheaded. Weakness. History of multiple myeloma and anemia. 82-year-old female by ambulance from the [facility]. This patient is currently undergoing chemotherapy for multiple myeloma which she has been fighting for the last 12 years. In association with this she has a history of anemia and thrombocytopenia. She requires almost weekly platelet transfusions as well as PRBC transfusions. She was seen for her regular appointment at the [facility]. Her son who is with her in the room and accompanied her to the [facility] states that she was extremely weak this morning and at the [facility], requiring assistance for any movement. Blood work was done at the [facility]. She was noted to have a hemoglobin of 5, hematocrit of 15.6 and a platelet count of 5. This is lower than her usual numbers. There was also a vague report from the [facility] that she had dark or black stool. ROS: Constitutional: No fever, no chills. As above. Eyes: No discharge. No changes in vision. ENT: No sore throat. No nasal congestion or rhinorrhea. Respiratory: No cough. No shortness of breath. Cardiac: No chest pain, no palpitations. Gastrointestinal: No abdominal pain, no vomiting, no diarrhea. Genitourinary: No hematuria. No dysuria or increased frequency with urination. Musculoskeletal: No back pain. No neck pain. No myalgias or arthralgias. Skin: No rashes. Neurological: No headache. No focal weakness or altered sensation. Past medical history: Multiple myeloma, thrombocytopenia, anemia, chronic renal insufficiency, concussion, cataracts. Social history: She is here with her son. Nonsmoker. No alcohol. Physical Exam: General Appearance: Alert, she is pale in complexion and appears fatigued. This patient is responding to questions appropriately and in full sentences. This patient appears well-hydrated and well-nourished. Eyes: Pupils equal and round no pallor or injection. No lid edema, erythema or injection. Respiratory: There are no retractions, lungs are clear to auscultation with good air movement bilaterally. No tachypnea. Left upper chest wall Port-A- Cath noted. Insertion site is unremarkable. Cardiovascular: Regular rate and rhythm. No murmur. Appreciated Gastrointestinal: Abdomen is soft and nontender, no masses, bowel sounds normal. No focal tenderness at McBurney's point. No Gamboa sign. Rectal exam: Significant for black and grossly bloody stool. No active rectal hemorrhage. Neurological: Motor sensory function is grossly intact. Cranial nerves are normal. Gait is normal. Skin: Warm and dry, no rashes. Musculoskeletal: Neck is supple and nontender. Extremities are symmetrical. All joints range without pain or impingement. Psychiatric: No agitation. No depression. Database: EKG: EKG time is 2:32 p.m.; EKG shows a narrow complex normal sinus rhythm with a ventricular rate of 82. The AL, QRS, QT intervals are within normal limits. There are no ST-T wave changes indicative of ischemic or injury pattern. No evidence of right heart strain. Interpreted by me. Imaging: Procedures: Emergency department course: Triage vital signs reviewed. She is afebrile. Blood pressure currently 99/58. Pulse oximetry 97% on room air. court recording monitor shows a narrow complex sinus rhythm with ventricular rate of 85. Large-bore IV was placed in addition to her Port-A-Cath. This patient's presentation is consistent with her chronic anemia as well as acute anemia and thrombocytopenia secondary to gastrointestinal bleeding. She has a markedly elevated BUN as well. She will be typed and screened. Transfusion of 2 units of PRBCs as well as platelets ordered at approximately 12:30 p.m.. She will be started on IV Protonix, given 80 mg initially. 1:25 p.m., the patient is currently receiving platelets and PRBCs. Blood pressure is currently 101/45. court recording monitor shows a narrow complex sinus rhythm with ventricular rate of 85. Hospitalist paged for admission. Patient Hemoccult positive. 1:30 p.m., spoke with on-call hospitalist. The patient will be accepted to for admission to the step-down unit by Dr. Faby orellana. Gastroenterology consultation deferred to the hospitalist service. They are aware of gastrointestinal bleeding. The patient's remaining emergency department course under my care has been uneventful. She was admitted in stable condition to the hospitalist service. Differential Diagnosis: The differential diagnosis on this patient includes but is not limited to history of multiple myeloma with chronic thrombocytopenia and anemia, acute gastrointestinal bleeding. This represents a partial list of diagnoses considered. These considerations are based on history, physical exam, past history, reassessment and diagnostic testing. Smoking Status: Former smoker Constitutional: Initial Vital Signs Temperature (C) 36.8 C 07/07/18 11:47 Heart Rate 83 07/07/18 11:47 Respiratory Rate 16 07/07/18 11:47 Blood Pressure 99/58 L 07/07/18 11:47 O2 Sat (%) 96 07/07/18 11:47 O2 Delivery Mode Room Air Allergies/Adverse Reactions: Cephalosporins Allergy (Unknown, Verified 07/07/18 11:55) Unknown Penicillins Allergy (Unknown, Verified 07/07/18 11:55) Rash Sulfa (Sulfonamide Antibiotics) Allergy (Unknown, Verified 07/07/18 11:55) throat swelling fenofibrate nanocrystallized [From Tricor] Allergy (Verified 07/07/18 11:55) Unknown fenofibrate,micronized [From Tricor] Allergy (Verified 07/07/18 11:55) Unknown lovastatin [From Mevacor] Allergy (Verified 07/07/18 11:55) Unknown Home Medications: Medication Instructions Recorded Ascorbic Acid [Vitamin C 500 mg 1,000 mg PO DAILY 05/31/17 (*)] Deferasirox [Jadenu] 180 mg PO BID 05/31/17 Herbals/Supplements -Info Only 1 ea PO DAILY 05/31/17 Loratadine [Claritin 10 mg] 10 mg PO DAILY PRN 05/31/17 valACYclovir [Valtrex (*)] 500 mg PO DAILY 05/31/17 Panobinostat Lactate [Farydak] 10 mg PO QS 02/12/18 traMADol [Ultram 50 mg (*)] 25 mg PO DAILY PRN 06/04/18 C/E/Zn/Cu/OM3/DHA/EPA/LUT/ZEAX 1 each PO BID 07/07/18 [Preservision Areds 2 Softgel] Dexamethasone [DEXAMETHASONE] 1 mg PO DAILY 07/07/18 Levothyroxine [Synthroid 100 mcg 100 mcg PO DAILY 07/07/18 (*)] Medical Decision Making - Data Points Medications Given: Cetirizine HCl (Zyrtec) 10 mg PO DAILY NELSON Stop: 01/04/19 08:59 Last Admin: 07/10/18 10:02 Dose: 10 mg Dexamethasone (Decadron) 1 mg PO DAILY NELSON Stop: 01/04/19 08:59 Last Admin: 07/10/18 10:03 Dose: 1 mg Levothyroxine Sodium (Synthroid) 100 mcg PO DAILY NELSON Stop: 01/04/19 08:59 Last Admin: 07/10/18 10:03 Dose: 100 mcg Miscellaneous Medication (Deferasirox [Jadenu]) 180 mg PO BID NELSON Stop: 01/04/19 08:59 Last Admin: 07/09/18 20:23 Dose: 180 mg Multivitamins/Minerals (Preservision Areds2 Formula) 1 each PO BID NELSON Stop: 01/05/19 10:59 Last Admin: 07/10/18 10:02 Dose: 1 each Pantoprazole Sodium (Protonix) 40 mg PO BID NELSON Stop: 01/04/19 08:59 Last Admin: 07/10/18 10:03 Dose: 40 mg Valacyclovir HCl (Valtrex) 500 mg PO DAILY NELSON Stop: 08/07/18 08:59 Last Admin: 07/10/18 10:02 Dose: 500 mg Discontinued Medications Sodium Chloride (Ns) 500 mls @ 1,000 mls/hr IV EDNOW ONE PRN Reason: Protocol Stop: 07/07/18 12:22 Last Admin: 07/07/18 12:40 Dose: 500 mls Sodium Chloride (Ns) 1,000 mls @ 75 mls/hr IV CONT NELSON Stop: 01/03/19 15:59 Last Admin: 07/09/18 07:39 Dose: 1,000 mls Sodium Chloride (Ns) 250 mls @ 0 mls/hr IV ONCE ONE PRN Reason: Wide Open Stop: 07/08/18 16:24 Last Admin: 07/08/18 16:30 Dose: 250 mls Multivitamins/Minerals (Preservision Areds2 Formula) 1 each PO BID NELSON Stop: 01/05/19 10:59 Last Admin: 07/09/18 11:42 Dose: Not Given Pantoprazole Sodium (Protonix) 80 mg IVP EDNOW ONE Stop: 07/07/18 12:19 Last Admin: 07/07/18 13:00 Dose: 80 mg Pantoprazole Sodium (Protonix) 40 mg IVP Q6H NELSON Stop: 01/03/19 17:59 Last Admin: 07/08/18 07:28 Dose: 40 mg Departure - Departure Disposition: [facility] Acute Clinical Impression: Thrombocytopenia, Anemia, Gastrointestinal bleeding, History of multiple myeloma
[2018-07-07 13:48] LABS: INR 1.23 (0.83-1.16)
[2018-07-07] MEDS ORDERED: ONDANSETRON 4 MG/2 ML VIAL IVP PRN (14:28)
[2018-07-07] MEDS ORDERED: ACETAMINOPHEN 325 MG TAB PO PRN (14:28)
[2018-07-07] MEDS ORDERED: ONDANSETRON DISINTEGRATING 4 MG TAB PO PRN (14:28)
--- NOTE | 2018-07-07 15:17 | CPEKG ---
Test Reason : OPEN Blood Pressure : / mmHG Vent. Rate : 083 BPM Atrial Rate : 149 BPM P-R Int : 144 ms QRS Dur : 086 ms QT Int : 425 ms P-R-T Axes : 000 038 063 degrees QTc Int : 500 ms AV block, complete (third degree) Multiform ventricular premature complexes Minimal ST depression, inferior leads Borderline ST elevation, lateral leads Borderline prolonged QT interval Confirmed by Darwin Zamora ([id number]) on 07/07/2018 3:17:00 PM Referred By: Darwin Zamora Confirmed By:Darwin Zamora
--- NOTE | 2018-07-07 15:37 | PDGENHP ---
History and Physical - Chief Complaint weakness, dizzy, melena - History of Present Illness 82 yo female with h/o multiple melanoma presents to ED from [facility] with weakness, dizziness, pre-syncope and melena. She was diagnosed with MM in 03/2004 and has had multiple different courses of chemotherapy with recurrence. She is currently on Bortezomib, Panobinostat and Daratumumab. She has transfusion dependent disease and gets platelet and prbc's transfusions weekly. Per her son , she commonly has a platelet count of around 5K. However, just last week her hgb was 10.9 and today it was 5. She has felt weaker than usual, so weak in fact she could not get up from the toilet in the bathroom at [facility], where she reportedly had melanotic stool. She also complains of increased gas and distention today. No N/V. No hematochezia. No fevers/chills, cough, CP or SOB. In the ED, 2 units of plts were ordered and 2 units of prbcs. She is hemodynamically stable and is admitted to the step down unit for further management. History Information - Allergies/Home Medication List Allergies/Adverse Reactions: Cephalosporins Allergy (Unknown, Verified 07/07/18 11:55) Unknown Penicillins Allergy (Unknown, Verified 07/07/18 11:55) Rash Sulfa (Sulfonamide Antibiotics) Allergy (Unknown, Verified 07/07/18 11:55) throat swelling fenofibrate nanocrystallized [From Tricor] Allergy (Verified 07/07/18 11:55) Unknown fenofibrate,micronized [From Tricor] Allergy (Verified 07/07/18 11:55) Unknown lovastatin [From Mevacor] Allergy (Verified 07/07/18 11:55) Unknown Home Medications: Ascorbic Acid [Vitamin C 500 mg (*)] 1,000 mg PO DAILY 05/31/17 [Last Taken 08:00] Deferasirox [Jadenu] 180 mg PO BID 05/31/17 [Last Taken 07/06/18 17:00] Herbals/Supplements -Info Only 1 ea PO DAILY 05/31/17 [Last Taken 06/10/18] Loratadine [Claritin 10 mg] 10 mg PO DAILY PRN 05/31/17 [Last Taken 06/10/18] valACYclovir [Valtrex (*)] 500 mg PO DAILY 05/31/17 [Last Taken 07/06/18 08:00] Panobinostat Lactate [Farydak] 10 mg PO QS 02/12/18 [Last Taken 06/09/18] traMADol [Ultram 50 mg (*)] 25 mg PO DAILY PRN 06/04/18 [Last Taken 06/05/18] C/E/Zn/Cu/OM3/DHA/EPA/LUT/ZEAX [Preservision Areds 2 Softgel] 1 each PO BID [Last Taken 07/06/18 17:00] Dexamethasone [DEXAMETHASONE] 1 mg PO DAILY 07/07/18 [Last Taken 07/06/18 08:00] Levothyroxine [Synthroid 100 mcg (*)] 100 mcg PO DAILY 07/07/18 [Last Taken 08:00] I have personally reviewed and updated: family history, medical history, social history, surgical history - Past Medical History Additional medical history: Multiple Myeloma. Pancytopenia. CKD. Hypothyroidism - Surgical History Reports: no pertinent surgical hx Additional surgical history: Kyphoplasties - Family History Additional family history: Asked, denies - Social History Smoking Status: Former smoker Alcohol Use: None Drug Use: None Additional social history: Lives independently, son at bedside Review of Systems Review of Systems: ROS: 10pt was reviewed & negative except for what was stated in HPI & below Physical Exam Physical Exam: Temp Pulse Resp BP Pulse Ox 36.4 C 80 21 H 120/65 98 07/07/18 15:10 07/07/18 15:10 07/07/18 15:10 07/07/18 15:10 07/07/18 15:10 Constitutional: no apparent distress, chronically ill appearing, other (pale) Eyes: PERRL Ears, Nose, Mouth, Throat: dry mucous membranes Cardiovascular: regular rate and rhythym Respiratory: no respiratory distress, clear to auscultation Gastrointestinal: other (soft, mild distention, nontender, no r/r/g +BS) Skin: warm Musculoskeletal: generalized weakness Neurologic: AAOx3 Psychiatric: interacting appropriately Lab Data & Imaging Review PT 15.0 SEC (12.0-15.0) 07/07/18 13:15 INR 1.23 (0.83-1.16) H 07/07/18 13:15 APTT 27.1 SEC (23.0-38.0) 07/07/18 13:15 POC Troponin I 0.01 ng/mL (0.00-0.08) 07/07/18 14:21 Stool Occult Bld Scrn POSITIVE (NEGATIVE) H 07/07/18 13:00 Patient ABO/Rh A POSITIVE 07/07/18 12:58 Antibody Screen POSITIVE 07/07/18 12:58 Antibody Identification UNDETERMINED 07/07/18 12:58 Crossmatch IS Only See Detail 07/07/18 12:58 Enhanced Crossmatch See Detail 07/07/18 12:58 Platelet Orders Status READY 07/07/18 12:58 Visualized and Interpreted EKG results: Yes EKG Interpretation: Positive for: normal sinsus rhythm Assessment & Plan Assessment: GIB - Melena and elevated BUN suggest upper GI source of bleeding. She is hemodynamically stable. With profoundly low platelets she is not a candidate for EGD at this time. We discussed the risks and she wishes to proceed conservatively without intervention at this time. No e/o ongoing active bleeding. -Protonix 40 mg IV q6h -clear liquids for now, NPO at midnight -will decide abt GI consult in am ABLA - hgb 10.9 last week, now 5. -2 units prbc's now -q6h h&h, transfusion to keep hgb >7 Thrombocytopenia - plts chronically <10, gets weekly transfusion with only transient benefit -2 units plts now -could consider trying for EGD right after plt transfusion if scope becomes necessary as she has previoulsy had plts >50K immediately after transfusion Pancytopenia - as above, 2/2 chemo. ANC 1,150, no fevers -transfusion as above and monitor WILNER - h/o CKD, BUN/Cr suggestive of pre-renal etiology -transfusions/IVF's, follow Multiple myeloma - transfusion dependent. Has had multiple rounds of chemo since 2004 with recurrence. Per outpt records, she may be progressing to end- stage. If she continues to decline hospice has been discussed. -hold chemo for now -oncology consult tomorrow Hypothyroidism - synthroid dose recently decreased, will continue this Code status - pt is DNR, confirmed with her and son DVT PPLX - pharm c/i with presumed GIB Dispo - inpt, step down, 45 minutes critical care
[2018-07-07] MEDS ORDERED: traMADol 50 MG TAB PO PRN (15:44)
--- NOTE | 2018-07-07 17:32 | PDMN ---
Medical Necessity Medical necessity: MCG M180 UGIB, A-2 days: 82 yo w/ weakness, dizziness, pre- syncope and melena in setting of multiple melanoma currently on chemo. Eval reveal probabl GIB likely upper GI w/ thrombocytopenia, not a candidate for EGT. Pt is pancytopenic w/ HGB 5, plt <10, ANC 1.1. GI and Onc to consult. May be progressing to end stage. Hospice eval if pt consents. Transfusions ordered. Pt high risk with active bleeding and pancytopenia. Admit to IP status SDU, meets IP criteria for UGIB w/ sig active comorbid disease and pancytopenia, anticipate>2Mn for ongoing monitoring and tx.
[2018-07-07] MEDS: PANTOPRAZOLE SODIUM 40 MG VIAL IVP SCH (18:25)
[2018-07-08] MEDS: PANTOPRAZOLE SODIUM 40 MG VIAL IVP SCH ×2 (01:24→07:28)
[2018-07-08 05:52] LABS: PLATELET COUNT 134 10^3/uL (150-400)
--- NOTE | 2018-07-08 09:00 | HOSPPROG ---
Hospitalist Progress Note Assessment/Plan: GIB - Melena and elevated BUN suggest upper GI source of bleeding. She is hemodynamically stable. With profoundly low platelets on arrival and hemodynamic stability, GI consult was deferred. No recurrent melena overnight. Pt wishes to defer GI procedure which I think is reasonable given her goals of care. -Change to PO protonix -diet as tolerated -monitor for one more day to ensure no recurrent bleeding ABLA - hgb 10.9 last week. S/P 2 units prbc's, hgb 5 --> 6.9 -transfuse another unit prbc's now -cont to monitor h&h, transfusion to keep hgb >7 Thrombocytopenia - plts chronically <10, gets weekly transfusion with only transient benefit. S/P 2 units plts with surprisingly good response -monitor Pancytopenia - as above, 2/2 chemo. ANC 1,500, no fevers. -transfusions as above and monitor WILNER - h/o CKD baseline Cr ~1.5. Multiple myeloma - transfusion dependent. Has had multiple rounds of chemo since 2004 with recurrence. Per outpt records, she may be progressing to end- stage. If she continues to decline hospice has been discussed. -hold chemo for now, discussed with Dr. Mccormick Hemochromatosis 2/2 recurrent transfusions -cont iron chelator Hypothyroidism - synthroid dose recently decreased, will continue this Cognitive impairment - cog eval requested DNR DVT PPLX - pharm c/i with presumed GIB, SCD's Dispo - cont inpt, transfer to med/surg, PT/OT evals, cog eval (pt lives independently) Subjective: Pt feels fine this am. Denies ongoing melena or bloody stools. Per RN, no further melena. No CP or SOB. She has ambulated, not dizzy. She is a poor historian, seems easily confused. Objective: Vital Signs Temp Pulse Resp BP Pulse Ox 36.6 C 73 15 133/76 H 97 07/08/18 07:24 07/08/18 07:24 07/08/18 07:24 07/08/18 07:24 07/08/18 07:24 Laboratory Results 07/08/18 05:25 07/08/18 05:25 07/07/18 07/08/18 07/09/18 05:59 05:59 05:59 Intake Total 1734 Balance 1734 PT 15.0 SEC (12.0-15.0) 07/07/18 13:15 INR 1.23 (0.83-1.16) H 07/07/18 13:15 - Physical Exam Constitutional: no apparent distress Eyes: PERRL Ears, Nose, Mouth, Throat: moist mucous membranes Cardiovascular: regular rate and rhythym Respiratory: no respiratory distress, clear to auscultation Gastrointestinal: normoactive bowel sounds, soft, non-tender abdomen Skin: warm Musculoskeletal: full muscle strength Psychiatric: poor memory ICD10 Worksheet Patient Problems: Problems Problem Status Onset Anemia Acute Gastrointestinal bleeding Acute Thrombocytopenia Acute Acute exacerbation of chronic bronchitis Acute Anemia in neoplastic disease Acute Chemotherapy induced thrombocytopenia Acute Closed stable fracture of multiple pubic rami Acute Dehydration Acute Failure to thrive in adult Acute Fall at home Acute Fracture of left superior pubic ramus Acute Hand pain Acute Nausea and vomiting Acute Weakness Acute Gait instability Chronic Multiple myeloma Chronic
[2018-07-08] MEDS: LEVOTHYROXINE 100 MCG TAB PO SCH (09:47)
[2018-07-08] MEDS: PANTOPRAZOLE SODIUM 40 MG TAB PO SCH ×2 (09:47→20:18)
[2018-07-08] MEDS: DEXAMETHASONE 0.5 MG TAB PO SCH (09:48)
[2018-07-08] MEDS: DEFERASIROX 180 MG PO SCH ×2 (09:48→20:18)
[2018-07-08] MEDS: CETIRIZINE 10 MG TAB PO SCH (09:48)
[2018-07-08] MEDS: valACYclovir 500 MG TAB PO SCH (10:53)
[2018-07-08] MEDS ORDERED: NS 250 ML IV ONE (16:23)
[2018-07-08] MEDS: NS 1,000 ML IV SCH (18:35)
--- NOTE | 2018-07-08 19:22 | SOAPPROG ---
SOAP Progress Note Assessment/Plan: Assessment:Plan: see full dictated consult 82 y/o female with MM an dementia with prob UGI bleed with drop H/H and increase BUN/cr ratio son deciding about EGD PPI BID I did speak to Dr. Bañuelos who thinks she is bleeding more and feels EGD appropriate. NPO p MN for possible EGD with anesthesia Emanuel Bryant MD [phone] 07/08/18 19:20 Objective: Vital Signs Temp Pulse Resp BP Pulse Ox 36.5 C 80 16 113/83 H 98 07/08/18 17:33 07/08/18 17:33 07/08/18 17:33 07/08/18 17:33 07/08/18 17:33 Laboratory Results 07/08/18 17:57 07/08/18 05:25 07/07/18 07/08/18 07/09/18 05:59 05:59 05:59 Intake Total 1734 400 Balance 1734 400 PT 15.0 SEC (12.0-15.0) 07/07/18 13:15 INR 1.23 (0.83-1.16) H 07/07/18 13:15 ICD10 Worksheet Patient Problems: Problems Problem Status Onset Anemia Acute Gastrointestinal bleeding Acute Thrombocytopenia Acute Acute exacerbation of chronic bronchitis Acute Anemia in neoplastic disease Acute Chemotherapy induced thrombocytopenia Acute Closed stable fracture of multiple pubic rami Acute Dehydration Acute Failure to thrive in adult Acute Fall at home Acute Fracture of left superior pubic ramus Acute Hand pain Acute Nausea and vomiting Acute Weakness Acute Gait instability Chronic Multiple myeloma Chronic
--- NOTE | 2018-07-08 21:34 | GCON ---
[f rep st] CONSULTATION DATE OF CONSULTATION: 07/08/2018 INDICATION FOR CONSULTATION: Melena and posthemorrhagic anemia. REQUESTING PHYSICIAN: Faby Vora MD HISTORY OF PRESENT ILLNESS: I have been asked by Dr. Vora to see the patient in consultation for chief complaint of melena and posthemorrhagic anemia. She is a pleasant 82-year-old female with dementia. Of note, her son is in the room to help with the history. She was diagnosed with multiple myeloma approximately 14 years ago. She has had multiple different courses of chemotherapy and is on her last chemo, which they did not expect to work well, but has worked well for about 9 months. She has transfusion-dependent disease requiring platelets frequently and transfusions every few weeks. I did speak to her oncologist, Dr. Bañuelos, and he says that her need for packed red blood cells has increased significantly, and that it is different from what it was before; however, her platelet count has always been very low and she requires platelet transfusions almost every week. She was admitted because she was extremely weak over at [facility] and she had melenic stools. She received transfusions, had blood count increase but drop again significantly, associated with increased BUN and creatinine ratio consistent with an upper GI bleed. She has had both EGDs and colonoscopies in the past dating back to 2011 and before. 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 She does not complain of any significant abdominal pain, nausea, vomiting, dysphagia, odynophagia, or significant alteration in appetite. She is demented and her son is there to help with the history as noted above. Because of her melena and decreased hemoglobin and hematocrit, I was called to help and evaluate for probable upper GI bleed. PAST MEDICAL HISTORY: Multiple myeloma, as noted above. She has pancytopenia, chronic kidney disease, and hypothyroidism. PAST SURGICAL HISTORY: She has had kyphoplasties L4-L5 and cataracts FAMILY HISTORY: No GI cancers to their knowledge. SOCIAL HISTORY: She is a former smoker. She does not drink any alcohol. MEDICATIONS: At home include vitamin C, deferasirox, loratadine, valacyclovir, panobinostat lactate, tramadol, dexamethasone, and levothyroxine. In the hospital, she is written for Tylenol p.r.n., Zyrtec 10 mg daily, Decadron 1 mg daily, Synthroid 100 mcg daily, Zofran 4 mg IV q.4 hours p.r.n., Protonix 40 mg b.i.d., Ultram 25 mg daily, Valtrex 500 mg daily, and deferasirox 180 mg b.i.d. ALLERGIES: Multiple. Cephalosporins with unknown reaction. Penicillins with rash. Sulfa with throat swelling. Fenofibrate nanocrystallized unknown allergy. Lovastatin unknown allergy. REVIEW OF SYSTEMS: A complete review of systems was performed and is negative, other than noted in HPI. Her son agrees with the review of systems. PHYSICAL EXAM: GENERAL: An elderly female sitting in her bed in no acute distress. VITAL SIGNS: Blood pressure is 113/83, pulse is 80, respirations 16. She is 98% on room air. Temperature 36.5. HEENT: Eyes: Anicteric. ИРИНА. EOMI. Mouth: No lesions. Moist mucous membranes. NECK: Supple. BACK : No spine tenderness. No CVA tenderness. LUNGS: Clear to auscultation. CARDIAC: S1, S2. Regular rate and rhythm. I do not appreciate any murmurs, rubs or gallops. ABDOMEN: Bowel sounds are normal in pitch and frequency. Soft and nontender. No hepatomegaly. EXTREMITIES: No cyanosis or clubbing. NEUROLOGIC: She is alert and awake. She is demented. She is nonfocal. SKIN: No stigmata of advanced liver disease. LABORATORY DATA: From today, sodium 140, potassium 4.1, chloride 114, bicarb 20 , BUN 57, creatinine 1.4. Glucose 80, calcium 8.3. Early this morning, WBC 2.39, hemoglobin 6.9, hematocrit 20.5. After transfusion, hemoglobin went up to 9.8, hematocrit 28.5. Historical laboratory data: On July 01, hemoglobin 10.9, hematocrit 34.2. On July 07, hemoglobin 5.0, hematocrit 15.6. Her platelet count on the was 18 and on the was 5, and after platelet transfusions up to 134. On July 07, pro time 15.0, INR 1.23, PTT 27.1. On June 24, BUN 42 and creatinine 1.6, on July 01 were 39 and 1.5, on July 07 were 75 and 1.6, on July 08 were 57 and 1.4. Stool occult blood was positive on July 07. Her most recent EGD and colonoscopy that I can see is an EGD from May 05, 2014, done for abdominal pain and diarrhea, with a normal esophagus, normal stomach and normal duodenum. Biopsies of the stomach showed patchy chronic antral gastritis, negative for H pylori. Biopsies of the duodenum were normal without evidence of celiac sprue. 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 The EGD performed at the same time revealed mild erythema in the stomach. No source of bleeding noted. The pathology of the polyp was a tubular adenoma. ASSESSMENT: Posthemorrhagic anemia associated with elevated BUN/creatinine ratio consistent with upper gastrointestinal bleeding in a patient with multiple myeloma, significantly low platelet count, and dementia. RECOMMENDATIONS: 1. Discussed EGD with the patient and her son. I had also discussed with Dr. Bañuelos by phone. He believes that her hemoglobin has been dropping more rapidly recently and he is concerned about an upper GI bleed. I think it is appropriate to proceed, although the patient and the son are not quite sure if they want to proceed with EGD. 2. Serial hemoglobin and hematocrit. 3. Check platelet count in the morning. If we are going to proceed with EGD and platelet count is significantly low, she will need a platelet transfusion. 4. Agree with PPI b.i.d. 5. Keep hemoglobin greater than 7. 6. Further recommendations following results of above and clinical course. 7. Given her multiple medical issues, this will be a higher risk procedure than normal. I will ask Anesthesia to perform the sedation and monitor the patient during the entire procedure. Thank you for allowing me to participate in the patient's health care. Do not hesitate to call me with any questions. /[id number]/MODL MTDD
[2018-07-09] MEDS: NS 1,000 ML IV SCH (07:39)
--- NOTE | 2018-07-09 09:15 | HOSPPROG ---
Hospitalist Progress Note Assessment/Plan: 82 yo F w longstanding MM here w melena GIB - Melena and elevated BUN suggest upper GI source of bleeding. She is hemodynamically stable. With profoundly low platelets on arrival and hemodynamic stability, egd held, now bbeing declined. No recurrent melena overnight. Pt wishes to defer GI procedure which I think is reasonable given her goals of care. -Change to PO protonix -diet as tolerated -monitor for one more day to ensure no recurrent bleeding ABLA - hgb 10.9 last week. S/P 2 units prbc's, hgb 5 --> 6.9 -transfuse another unit prbc's now -cont to monitor h&h, transfusion to keep hgb >7 07/09: midnight hg 10 Thrombocytopenia - plts chronically <10, gets weekly transfusion with only transient benefit. S/P 2 units plts with surprisingly good response -monitor last platelets 134 yest AM Pancytopenia - as above, 2/2 chemo. ANC 1,500, no fevers. -transfusions as above and monitor WILNER - h/o CKD baseline Cr ~1.5. Multiple myeloma - transfusion dependent. Has had multiple rounds of chemo since 2004 with recurrence. Per outpt records, she may be progressing to end- stage. If she continues to decline hospice has been discussed. -hold chemo for now, discussed with Dr. 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 denies further melena. refusing egd at this time. refused AM labs. 3 units packed cells, 2 units platelets Objective: Vital Signs Temp Pulse Resp BP Pulse Ox 36.7 C 94 14 139/68 H 96 07/09/18 06:52 07/09/18 06:52 07/09/18 06:52 07/09/18 06:52 07/09/18 06:52 Laboratory Results 07/09/18 00:51 07/08/18 05:25 04/24/19 04/25/19 04/26/19 05:59 05:59 05:59 Intake Total 1734 1267 Output Total 1350 Balance 1734 -83 PT 15.0 SEC (12.0-15.0) 07/07/18 13:15 INR 1.23 (0.83-1.16) H 07/07/18 13:15 - Physical Exam Constitutional: no apparent distress, appears nourished Eyes: PERRL, anicteric sclera Ears, Nose, Mouth, Throat: moist mucous membranes, hearing normal Cardiovascular: regular rate and rhythym, no murmur, rub, or gallop, No tachycardia Respiratory: no respiratory distress, no rales or rhonchi Gastrointestinal: normoactive bowel sounds, soft, non-tender abdomen Genitourinary: no bladder fullness, No waters in urethra Skin: warm, normal color Musculoskeletal: full muscle strength Neurologic: AAOx3 ICD10 Worksheet Patient Problems: Problems Problem Status Onset Anemia Acute Gastrointestinal bleeding Acute Thrombocytopenia Acute Acute exacerbation of chronic bronchitis Acute Anemia in neoplastic disease Acute Chemotherapy induced thrombocytopenia Acute Closed stable fracture of multiple pubic rami Acute Dehydration Acute Failure to thrive in adult Acute Fall at home Acute Fracture of left superior pubic ramus Acute Hand pain Acute Nausea and vomiting Acute Weakness Acute Gait instability Chronic Multiple myeloma Chronic
[2018-07-09] MEDS: CETIRIZINE 10 MG TAB PO SCH (10:24)
[2018-07-09] MEDS: LEVOTHYROXINE 100 MCG TAB PO SCH (10:24)
[2018-07-09] MEDS: PANTOPRAZOLE SODIUM 40 MG TAB PO SCH ×2 (10:24→20:23)
[2018-07-09] MEDS: valACYclovir 500 MG TAB PO SCH (10:25)
[2018-07-09] MEDS ORDERED: PRESERVISION AREDS2 FORMULA EYE VIT 1 EACH PO SCH (11:00)
[2018-07-09] MEDS: DEXAMETHASONE 0.5 MG TAB PO SCH (11:37)
[2018-07-09] MEDS: DEFERASIROX 180 MG PO SCH ×2 (11:38→20:23)
[2018-07-09] MEDS: PRESERVISION AREDS2 FORMULA EYE VIT 1 EACH PO SCH ×2 (11:38→20:23)
--- NOTE | 2018-07-09 13:35 | SOAPPROG ---
VERONICA Progress Note Assessment/Plan: Assessment:Plan: see full dictated consult 82 y/o female with MM an dementia with prob UGI bleed with drop H/H and increase BUN/cr ratio son deciding about EGD PPI BID I did speak to Dr. Bañuelos who thinks she is bleeding more and feels EGD appropriate. NPO p MN for possible EGD with anesthesia Emanuel Bryant MD [phone] 07/08/18 19:20 07/09/18 13:34 1) UGI bleed - they decided not to proceed with EGD today. PPI BID, follow H?H 2) anemia - Hb stable, keep > 7 will sign off and follow on computer Subjective: cc- UGI bleed with post hemorrhagic anemie, MM pt and son in room she denies any abdo pain, n/v Objective: Vital Signs Temp Pulse Resp BP Pulse Ox 37.0 C 84 18 95/49 L 97 07/09/18 12:00 07/09/18 12:00 07/09/18 12:00 07/09/18 12:00 07/09/18 12:00 Laboratory Results 07/09/18 00:51 07/08/18 05:25 07/08/18 07/09/18 07/10/18 05:59 05:59 05:59 Intake Total 1734 1267 Output Total 1350 1700 Balance 1734 -83 -1700 PT 15.0 SEC (12.0-15.0) 07/07/18 13:15 INR 1.23 (0.83-1.16) H 07/07/18 13:15 CTA S1S2 +BS soft, nt Laboratory Tests 07/08/18 07/08/18 07/08/18 05:25 14:35 17:57 Hgb 6.9 L 10.3 L 9.9 L 07/09/18 00:51 Hgb 10.1 L ICD10 Worksheet Patient Problems: Problems Problem Status Onset Anemia Acute Gastrointestinal bleeding Acute Thrombocytopenia Acute Acute exacerbation of chronic bronchitis Acute Anemia in neoplastic disease Acute Chemotherapy induced thrombocytopenia Acute Closed stable fracture of multiple pubic rami Acute Dehydration Acute Failure to thrive in adult Acute Fall at home Acute Fracture of left superior pubic ramus Acute Hand pain Acute Nausea and vomiting Acute Weakness Acute Gait instability Chronic Multiple myeloma Chronic
--- NOTE | 2018-07-09 15:54 | ASMTCMCOM ---
CM Note CM Note Notes: 07/09/2018 Case Management Note Pt admitted for anemia, thrombocytopenia w/possible GI bleed from [facility]. Met w/pt who requested case management call her son Kali [phone]. Per Kali, pt lives independently in her own home. [facility] provides unskilled care for 7 - 10 hours a day. Kali lives a few blocks away and provides care in the home on a daily basis. Kali or [facility] prepare meals for pt. Pt no longer drives, Kali has pt car at his home. Pt has previous stay at [facility] 2 - 3 years ago after fall in the home resulting in broken pelvis. Pt sees Dr. Bañuelos weekly. Kali reports that pt confusion has increased while in the hospital. Therapies recommending home today. Case Management d/c poc: home with family support resuming [facility] unskilled care providers. Case Management to follow. Date Signed: 07/09/2018 03:54 PM Electronically Signed By:Carol Leone RN
[2018-07-10 09:44] VITALS: BP 112/64
[2018-07-10] MEDS: PRESERVISION AREDS2 FORMULA EYE VIT 1 EACH PO SCH (10:02)
[2018-07-10] MEDS: valACYclovir 500 MG TAB PO SCH (10:02)
[2018-07-10] MEDS: CETIRIZINE 10 MG TAB PO SCH (10:02)
[2018-07-10] MEDS: PANTOPRAZOLE SODIUM 40 MG TAB PO SCH (10:03)
[2018-07-10] MEDS: DEXAMETHASONE 0.5 MG TAB PO SCH (10:03)
[2018-07-10] MEDS: LEVOTHYROXINE 100 MCG TAB PO SCH (10:03)
--- NOTE | 2018-07-10 11:14 | HOSPPROG ---
Hospitalist Progress Note Assessment/Plan: 82 yo F w longstanding MM here w melena GIB - Melena and elevated BUN suggest upper GI source of bleeding. She is hemodynamically stable. With profoundly low platelets on arrival and hemodynamic stability, egd held, now bbeing declined. No recurrent melena overnight. Pt wishes to defer GI procedure which I think is reasonable given her goals of care. -Change to PO protonix -diet as tolerated -monitor for one more day to ensure no recurrent bleeding 07/10- stool not black wishes to go repeat CBC now ABLA - hgb 10.9 last week. S/P 2 units prbc's, hgb 5 --> 6.9 -transfuse another unit prbc's now -cont to monitor h&h, transfusion to keep hgb >7 07/09: midnight hg 10 Thrombocytopenia - plts chronically <10, gets weekly transfusion with only transient benefit. S/P 2 units plts with surprisingly good response -monitor last platelets 134 yest AM Pancytopenia - as above, 2/2 chemo. ANC 1,500, no fevers. -transfusions as above and monitor WILNER - h/o CKD baseline Cr ~1.5. Multiple myeloma - transfusion dependent. Has had multiple rounds of chemo since 2004 with recurrence. Per outpt records, she may be progressing to end- stage. If she continues to decline hospice has been discussed. -hold chemo for now, discussed with Dr. Mccormick Hemochromatosis 2/2 recurrent transfusions -cont iron chelator Hypothyroidism - synthroid dose recently decreased, will continue this Cognitive impairment - cog eval requested DNR DVT PPLX - pharm c/i with presumed GIB, SCD's Dispo - cont inpt, transfer to med/surg, PT/OT evals, cog eval (pt lives independently) Subjective: dark stool, not black. alert Objective: Vital Signs Temp Pulse Resp BP Pulse Ox 36.6 C 71 16 112/64 97 07/10/18 09:42 07/10/18 09:42 07/10/18 09:42 07/10/18 09:42 07/10/18 09:42 Laboratory Results 07/09/18 00:51 07/08/18 05:25 07/09/18 07/10/18 07/11/18 05:59 05:59 05:59 Intake Total 1267 1450 Output Total 1350 3000 Balance -83 -1550 PT 15.0 SEC (12.0-15.0) 07/07/18 13:15 INR 1.23 (0.83-1.16) H 07/07/18 13:15 - Physical Exam Constitutional: no apparent distress, appears nourished Eyes: PERRL, anicteric sclera Ears, Nose, Mouth, Throat: moist mucous membranes, hearing normal Cardiovascular: regular rate and rhythym, no murmur, rub, or gallop Respiratory: no respiratory distress, no rales or rhonchi Gastrointestinal: normoactive bowel sounds, soft, non-tender abdomen Genitourinary: no bladder fullness, No waters in urethra Skin: warm, normal color Musculoskeletal: full muscle strength, no muscle tenderness Neurologic: AAOx3 ICD10 Worksheet Patient Problems: Problems Problem Status Onset Anemia Acute Gastrointestinal bleeding Acute History of multiple myeloma Acute Thrombocytopenia Acute Acute exacerbation of chronic bronchitis Acute Anemia in neoplastic disease Acute Chemotherapy induced thrombocytopenia Acute Closed stable fracture of multiple pubic rami Acute Dehydration Acute Failure to thrive in adult Acute Fall at home Acute Fracture of left superior pubic ramus Acute Hand pain Acute Nausea and vomiting Acute Weakness Acute Gait instability Chronic Multiple myeloma Chronic
[2018-07-10] MEDS: DEFERASIROX 180 MG PO SCH (11:59)
[2018-07-10 12:40] LABS: PLATELET COUNT 71 10^3/uL (150-400)
--- NOTE | 2018-07-10 13:14 | CPEKG ---
Test Reason : OPEN Blood Pressure : / mmHG Vent. Rate : 082 BPM Atrial Rate : 084 BPM P-R Int : 132 ms QRS Dur : 082 ms QT Int : 384 ms P-R-T Axes : 068 074 061 degrees QTc Int : 449 ms Sinus rhythm Confirmed by Christian Abdi ([id number]) on 07/10/2018 1:13:55 PM Referred By: Faby Vora Confirmed By:Christian Abdi
--- NOTE | 2018-07-10 13:44 | GCON ---
[f rep st] CONSULTATION The patient is an 82-year-old female with a long history of multiple myeloma who has been through mul tiple courses of therapies, most recently she has been on panobinostat and Velcade. She has had issu es with significant cytopenias and has received both red cell support and weekly platelet transfusion support. She came in a few days ago with weakness, dizziness and melena. Hematocrit had dropped fr om 10.9 to 5. She was transfused packed RBCs and placed on a proton pump inhibitor. GI was consulte d and the pros and cons of an upper GI endoscopy were discussed, but she declined. I should note vitaly t her platelets were 5000 on admission and she received 2 unit platelet transfusion with an increase to 156. She has been stable the last couple days in terms of her hemoglobin and hematocrit, and toda y it is 11.1, platelets are 71,000. IMPRESSION: Patient with GI bleed and significant thrombocytopenia and end-stage multiple myeloma. PLAN: Plan is to discharge today. I would suggest a PPI and have her follow up with Dr. Bañuelos next week. /[id number]/MODL
--- NOTE | 2018-07-10 13:49 | GDS ---
[f rep st] DISCHARGE SUMMARY DISCHARGE DIAGNOSES: 1. Multiple myeloma. 2. Acute blood loss anemia. 3. Chronic thrombocytopenia. 4. Transfusion dependence. 5. Mild dementia. HOSPITAL COURSE: Please see admission history and physical by Dr. Faby Vora. The patient zoltan aiken with weakness, dizziness, presyncope, and melena. She was sent to the Emergency Department at e [facility]. She has transfusion-dependent disease and gets platelets and red paresh l transfusions weekly, with a baseline platelet count around 5000. One week prior to admission, her hemoglobin was 11, it was 5 on presentation. She was noted to have melena at [facility] enter. She was admitted with passing melena. She had a chronically elevated BUN in the 40s and it w as even higher. She was offered endoscopy, but declined it. She did not have hematemesis or bright red blood per rec blanquita. She was placed on a twice daily PPI. She received a total of 3 units of red cells and 2 units of platelets. Her platelets today are 71,000. Hemoglobin is relatively stable at 11. She is discha rged home on a twice daily PPI for 2 months with outpatient followup. Greater than 30 minutes was spent on this discharge summary. /[id number]/MODL
--- NOTE | 2018-07-10 13:58 | ASDISCHSUM ---
Discharge Information Plan Status:Home with No Needs Medically Cleared to Leave:07/10/2018 Discharge Date:07/10/2018 CM D/C Disposition:Home, Routine, Self-Care ADT D/C Disposition: Projected Discharge Date:07/10/2018 Transportation at D/C:Family Discharge Delay Reason: Follow-Up Date:07/10/2018 Discharge Slot: Final Diagnosis: Placement Information Patient Contact Information Contact Name:SHERINE Relationship:Son Address:[address] City:[place] Alternate Phone: State/Zip Code:[place] [address] Email: Financial Information Financial Class:Medicare Primary Plan Desc:MEDICARE INPATIENT Primary Plan Number:[id number] Secondary Plan Desc:VERO CARRERA Secondary Plan Number:[id number] Assessment Information LACE LACE Length of stay for Answers: 3 days current admission Acuity / Level of Answers: Yes Care: Did the patient have an inpatient admission? Comorbidities - select Answers: Any tumor (including all that apply lymphoma or leukemia) Opioid dependence / Chronic pain # of Emergency department Answers: 1-2 visits in the last 6 months Score: 13 Date Signed: 07/10/2018 01:57 PM Electronically Signed By:Shaniqua Aguilar [facility] CM Progress Note CM Note CM Note Notes: 07/09/2018 Case Management Note Pt admitted for anemia, thrombocytopenia w/possible GI bleed from [facility]. Met w/pt who requested case management call her son Kali [phone]. Per Kali, pt lives independently in her own home. [facility] provides unskilled care for 7 - 10 hours a day. Kali lives a few blocks away and provides care in the home on a daily basis. Kali or [facility] prepare meals for pt. Pt no longer drives, Kali has pt car at his home. Pt has previous stay at [facility] 2 - 3 years ago after fall in the home resulting in broken pelvis. Pt sees Dr. Bañuelos weekly. Kali reports that pt confusion has increased while in the hospital. Therapies recommending home today. Case Management d/c poc: home with family support resuming [facility] unskilled care providers. Case Management to follow. Date Signed: 07/09/2018 03:54 PM Electronically Signed By:Carol Leone RN Case Management Discharge Plan Note Case Management Discharge Discharge Order Complete? Answers: Yes Patient to Obtain Answers: Independently Medications Transportation Arranged Answers: Family/Friends Discharge Comments Notes: Pt discharged independently with family support and supervision. Pt will resume [facility]. Son will be transporting pt home. Date Signed: 07/10/2018 01:56 PM Electronically Signed By:Shaniqua Aguilar Intervention Information
== END 2018-07-10 18:12 | disposition home or self-care (01) | DRG 377 ==
LOC: EDUNIT# → F2N 15:05 → F1N 07-08 10:25 → F2W 07-08 17:23
PROVIDERS: ADMIT Hospitalist; ATTEND Hospitalist
PROC: 30233N1 Transfusion of Nonautologous Red Blood Cells into Peripheral Vein, Percutaneous Approach (ICD-10-PCS; principal; 2018-07-07)
PROC: 30233R1 Transfusion of Nonautologous Platelets into Peripheral Vein, Percutaneous Approach (ICD-10-PCS; principal; 2018-07-07)
DX: K92.2 Gastrointestinal hemorrhage, unspecified (principal); C90.00 Multiple myeloma not having achieved remission; D62 Acute posthemorrhagic anemia; D61.810 Antineoplastic chemotherapy induced pancytopenia; N18.9 Chronic kidney disease, unspecified; D69.6 Thrombocytopenia, unspecified; E03.9 Hypothyroidism, unspecified; F03.90 Unspecified dementia, unspecified severity, without behavioral disturbance, psychotic disturbance, mood disturbance, and anxiety; Z66 Do not resuscitate; Z87.891 Personal history of nicotine dependence
CPT/HCPCS: 84484-ER; 86850-90; 86870-90; 86905-90; 86922-90; 92523-GN; 96374; 97116-GP; 97162-GP; 97165-GO; 97535-GO; 99001-90; J1642; P9016; P9035

== ENCOUNTER 2018-07-15 12:45 | Outpatient (CLI) | payer OTHER | END 2018-07-15 15:23 | disposition home or self-care (01) | LOC: FOBOP 12:45 | PROVIDERS: ATTEND Internal Medicine Hematology & Oncology | PROC: 30233N1 Transfusion of Nonautologous Red Blood Cells into Peripheral Vein, Percutaneous Approach (ICD-10-PCS; principal; 2018-07-15) | DX: C90.00 Multiple myeloma not having achieved remission (principal) | CPT/HCPCS: 36430; P9035 ==

== ENCOUNTER 2018-07-23 17:24 | Outpatient (CLI) | payer OTHER ==
[2018-07-23 19:03] VITALS: BP 110/65
== END 2018-07-23 20:31 | disposition home or self-care (01) ==
LOC: FOBOP 17:24
PROVIDERS: ATTEND Internal Medicine Hematology & Oncology
PROC: 30233R1 Transfusion of Nonautologous Platelets into Peripheral Vein, Percutaneous Approach (ICD-10-PCS; principal; 2018-07-23)
DX: C90.00 Multiple myeloma not having achieved remission (principal); D64.81 Anemia due to antineoplastic chemotherapy
CPT/HCPCS: 36430; J1642; P9073; 86850-90; 99001-90

== ENCOUNTER → 2018-07-24 | Outpatient (CLI) | payer OTHER ==
[2018-07-24 15:09] VITALS: BP 98/44
== END ==
LOC: EDSTATUS 12:00 → F3EOP 12:40
PROVIDERS: ATTEND Internal Medicine Hematology & Oncology
DX: C90.00 Multiple myeloma not having achieved remission (principal)
CPT/HCPCS: 36430; J1642; P9016; 86850-90; 86870-90; 86905-90; 86922-90; 99001-90

== ENCOUNTER 2018-07-29 15:57 | Outpatient (CLI) | payer OTHER | END 2018-07-29 18:15 | disposition home or self-care (01) | LOC: FOBOP 15:57 | PROVIDERS: ATTEND Internal Medicine Hematology & Oncology | DX: C90.00 Multiple myeloma not having achieved remission (principal); Z66 Do not resuscitate | CPT/HCPCS: 36430; J1642; P9073; 82784-90; 86334-90 ==

== ENCOUNTER 2018-08-05 12:17 | Outpatient (CLI) | payer OTHER | END 2018-08-05 14:37 | disposition home or self-care (01) | LOC: FOBOP 12:17 ==

== ENCOUNTER → 2018-08-08 | Outpatient (CLI) | payer OTHER | LOC: GIMAGING 11:02 | PROVIDERS: ATTEND Nurse Practitioner Family | DX: R07.89 Other chest pain (principal); Z91.81 History of falling | CPT/HCPCS: 71046-PO; 71100-PO ==

== ENCOUNTER 2018-08-19 19:06 | Inpatient (IN) | payer OTHER | END 2018-08-21 15:30 | disposition home health service (06) | LOC: F1N 21:22 ==

== ENCOUNTER → 2018-08-26 | Outpatient (CLI) | payer OTHER | LOC: FOBOP 15:38 ==

== ENCOUNTER 2018-09-02 13:42 | Outpatient (CLI) | payer OTHER | END 2018-09-02 15:53 | disposition home or self-care (01) | LOC: FOBOP 13:42 ==

== ENCOUNTER → 2018-09-10 | Outpatient (CLI) | payer OTHER | LOC: FOBOP 11:34 ==